=== PATIENT | female | born 1940 | race Caucasian/White ===

== ENCOUNTER 2020-06-24 12:16 | Outpatient (CLI) | payer MEDICARE, SELFPAY ==
--- NOTE | 2020-06-25 11:00 | WPDPFTINT ---
PFT Interpretation PFT Interpretation: This PFT met all criteria for ATS standards and reproducibility FEV/FVC post bronchodilator 67% FEV1 76% or 1.29 liters FVC 77% or 1.92 liters TLC 100% RV 133% RV/TLC 57% DLCO 63% when adjusted for alveolar volume but not adjusted for hemoglobin Flow volume loops showed significant expiratory coving Impression: Moderate airflow obstruction with air trapping and mildly reduced diffusion capacity. This pattern is suggestive of COPD. Clinical correlation is advised.
== END 2020-06-24 12:17 | disposition home or self-care (01) ==
PROVIDERS: PCP Nurse Practitioner Adult Health; Visit Provider Nurse Practitioner
DX: J44.9 Chronic obstructive pulmonary disease, unspecified (principal); R94.2 Abnormal results of pulmonary function studies
CPT/HCPCS: 94060; 94726; 94729

== ENCOUNTER 2025-02-09 08:11 | Outpatient (CLI) | payer MEDICARE, SELFPAY ==
--- OUTSIDE RECORDS SUMMARY | 2025-02-08 15:56 | XMS_ITS | Continuity of Care Document ---
Author Organization [facility] Address [address] [place] [address] Phone Care Team Providers Care Environmental Technology Professor Name Role Phone Kevin Mccarthy Unavailable Unavailable [...] Copied on Encounter Office/outpati ent Visit, Est [facility], [address], [place], [place], [address], [place] tel:[phone] SEC [facility] No Information 201 0 Shari Brown. [address] , [address], [place], [address], [place]. tel:[phone] Office/outpati ent Visit, [facility], [address] [place] [address] [address], [place], [place], [address], [place] tel:[phone] SEC [facility] No Information 0 8-201 0 Shari Brown. [facility] , [address], [place], [place], [facility], [place]. tel:[phone] [facility], [address] [place] [address] [address], [place], [place], [address], [place] tel:[phone] SEC [facility] No Information 4-201 0 Usama Traore. [address] [employer], [place], [facility], [place]. tel:[phone] [facility], [address] [place] [address] [address], [place], [place], [address], [place] tel:[phone] SEC [facility] [place] No Information Sep-1 7-200 9 Forrester León. [address] [employer], [place], [facility], [place]. tel:[phone] Office Consultation [facility], [address] [place] [address] [address], [place], [place], [address], [place] tel:[phone] [facility] [place] No Information Sep-0 3-200 9 Usama Traore. [address] [employer], [place], [facility], [place]. tel:[phone] Referring Provider: Kevin Wilson, [address] [place] [address] [address], [place], [address]. tel:[phone] [facility], [address] [place] [address] [address], [place], [place], [address], [place] tel:[phone] SEC [facility] No Information Sep-0 2-200 9 Shari Brown. [facility] , [address], [place], [facility], [place]. tel:[phone] [facility], [address] [place] [address] [address], [place], [place], [address], [place] tel:[phone] [facility] No Information Mar-0 5-200 8 Doisy Edward. [address] [facility] , [address], [place], [address], . tel:[phone] Office/outpati ent Visit, [facility], [address] [place] [address] [address], [place], [place], [address], [place] tel:[phone] SEC Yohsi Dupree No Information Mar-0 9-200 7 B[place]. [address] [place] [address], [address], [place], [place], [address], [place]. tel:[phone] Referring Provider: Abimael Carmichael OD A, [address] [place], [place] [address]ate [address], [place], [facility]. tel:[phone] Office/outpati ent Visit, [facility], [address] [place] [address] [address], [place], [place], [address], [place] tel:[phone] SEC [facility] No Information Mar-0 6-200 7 Carmichael OD Abimael. [facility] , [address], [place], [address], [place]. tel:[phone] Office/outpati ent Visit, [facility], [address] [place] [address] [address], [place], [place], [address], [place] tel:[phone] SEC [facility] No Information Feb-2 8-200 7 Carmichael OD Abimael. [address] , [address], [place], [address], [place]. tel:[phone] Office/outpati ent Visit, [facility], [address] [place] [address] [address], [place], [place], [address], [place] tel:[phone] [facility] No Information Feb-0 3-200 7 Carmichael OD Abimael. [address] , [address], [place], [address], [place]. tel:[phone] Family History Family Member Type Diagnosis Age At Onset No Information Payers Payer name Insurance type Covered republican ID Authoriza tion(s) Medicare [facility] [id number] [place] [id number] Social History Type Description Quantity Date Captured [...]
--- OUTSIDE RECORDS SUMMARY | 2025-02-08 15:56 | XMS_ITS | Encounter Summary ---
Author Organization [facility] Health Address [address] [place] [address] Care Team Providers Care Operations Manager Name Role Phone Marry Cardoso MD Unavailable [phone] Nadege Cervantes Primary Care Provider + Marry Cardoso MD Unavailable [phone] Jennifer Benitez MD Primary Care Provider [phone] Nadege Cervantes Primary Care Provider + Encounter Details Date Type Department Care Team (Late st Contact Info) Description 07/27/2017 [facility] Outpatient Visit [facility] [address] [place] [address] [place] [address] [address] Social History Tobacco Use Types Packs/Day Years Used Date Smoking Tobacco: Former Cigarettes 1 08/30/2002 - 12/28/2006 Alcohol Use Standard Drinks/Week Comments Yes 0 (1 standard drink = 0.6 oz pur e alcohol) occas glass of wine Comments No Sex and Gender Information Value Date Recorded Sex Assigned at Female 01/21/2021 10:18 AM CDT Legal Sex Female 4:47 AM BI SPECIALIST Gender Identity Female 01/21/2021 10:18 AM CDT Sexual Orientation Straight 01/21/2021 10 :18 AM CDT Occupation Industry Job Start Date Job End Date retired Not on file Not on file Not on file documented as of this encounter Plan of Treatment Upcoming Encounters Date Type Department Care Team (Late st Contact Info) Description 02/12/2025 8:00 AM CDT Hospital Encounter [facility] [address] [facility], [address] [place] [address] [place] [address] [facility] [address] [place] [address] 03/26/2025 8:00 AM CDT Appointment [facility] - [facility] [address] [facility], [address] [place] [address] [place] [id number] [place] [address] [address] [place] [address] 05/08/2025 8:15 AM CDT Office Visit [facility] [id number] [place] [address] [address] [place] [address] [place] [id number] [place] [address] [address] [place] [address] documented as of this encounter Visit Diagnoses Not on filedocumented in this encounter Care Teams Operations Manager Relationship Specialty Start Date End Date Nadege Cervantes APRN-SPINNING DOFFER [address] [phone] PCP - General Nurse Practitioner 12/05/15 11/23/22 Marry Cardoso MD [address] [place] [address] [address] [place] [address] PCP - Attributed-MSSP 03/15/18 12/03/19 Jennifer Benitez MD [address] [place], [place] [address] [place] [address] PCP - General Family Medicine 11/24/22 05/29/24 Nadege Cervantes APRN-SPINNING DOFFER [address] [address] PCP - General Nurse Practitioner 05/30/24 [place] [address] [address] Clasp Machine Operator Rheumatology 12/05/15 documented as of this encounter
--- OUTSIDE RECORDS SUMMARY | 2025-02-08 15:56 | XMS_ITS | Clinical Summary ---
Author Organization [facility] Address [address] [place] [address] Care Team Providers Care Hand Woven Carpet And Rug Mender Name Role Phone Nadege Cervantes NP Primary Care Provider [phone] Allergies Active Allergy Reactions Criticality Noted Date Comments Ezetimibe Unknown 07/21/2022 Iodinated Contrast Media Methotrexate Shortness of breath High 12/28/2014 Solifenacin Unknown 12/05/2015 Does not remember the reaction Sulfa (Sulfonamide Antibiotics) Medications buPROPion SR (ZYBAN) 150 mg 12 hr tablet Take 1 tablet (150 mg total) by mouth 2 (two) times a day Active losartan (COZAAR) 50 mg tablet Take 1 tablet (50 mg total) by mouth daily Active montelukast (SINGULAIR) 10 mg tablet Take 1 tablet (10 mg total) by mouth nightly Active sertraline (ZOLOFT) 50 mg tablet Take 1 tablet (50 mg total) by mouth nightly Active simvastatin (ZOCOR) 20 mg tablet Take 1 tablet (20 mg total) by mouth nightly Active aspirin 81 mg enteric coated tablet Take 1 tablet (81 mg total) by mouth nightly Active multivitamin with minerals tablet Take 1 tablet by mouth daily Active calcium carbonate-vitam in D3 1,250 mg (500 mg elemental)-125 unit per tablet Take 1 tablet by mouth nightly Active cycloSPORINE (RESTASIS) 0.05 % ophthalmic emulsion Administer 1 drop into both eyes 2 (two) times a day Active fluticasone propionate (FLONASE) 50 mcg/actuation nasal spray Administer 2 sprays into each nostril nightly Active abatacept (ORENCIA) 250 mg injection Infuse 30 mL (750 mg total) into a venous catheter as directed Every 6 weeks Active cholecalciferol (VITAMIN D-3) 25 mcg (1,000 unit) tablet Take 1 tablet (1,000 Units total) by mouth 3 (three) times a week Wednesday, Wednesday, Wednesday Active glucosamine HCl 1,500 mg tablet Take 2 tablets by mouth daily Active chondroitin sulfate A sodium 400 mg capsule Take 1 capsule by mouth nightly Active buPROPion XL (WELLBUTRIN XL) 150 mg 24 hr tablet Take 1 tablet (150 mg total) by mouth daily Active furosemide (LASIX) 20 mg tablet Take 1 tablet (20 mg total) by mouth daily Active tiotropium-olod ateroL (Stiolto Respimat) 2.5-2.5 mcg/actuation inhaler Inhale 2 puffs daily 3 each 3 5 12/26/19 26 Active Active Problems Problem Noted Date Diagnosed Date Seasonal allergic rhinitis 12/25/2024 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 Bronchiectasis without acute exacerbation 2024 Colitis 07/21/2022 Dependence on supplemental oxygen 02/25/2021 Rheumatoid arthritis 12/14/2015 Hyperlipidemia 12/14/2015 Chronic obstructive pulmonary disease 12/14/2015 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 Obesity with body mass index 30 or greater 12/11 Hepatitis B antibody positive 12/11/2015 Encounters Date Type Department Care Team Description 01/08/2025 Telephone [facility] Pulmonary at [address] [place] [address] Lillie Herrera LPN Med Refill 12/25/2024 10:30 AM CDT Office Visit [facility] Pulmonary at [address] [place] [address] Darian Wilder DO Bronchiectasis without acute exacerbation (HCC) (Primary Dx); Chronic obstructive pulmonary disease, unspecified COPD type (HCC) from Last 3 Months Immunizations Immunization Administration Dates Next Due Influenza, Quadrivalent, Hig h Dose, Preservative Free, Intrr 05/23/2022,06/14/2021,05/30/2018,06/01 Influenza, Quadrivalent, Spl it, Intramuscular 06/08/2019,05/30/2018,06/01/2017 Influenza, Trivalent, IM (MDV) 7,06/01/2016,05/28/2015,07/27 Influenza, Trivalent, Split, Preservative Free, Intradermal 06/14/2015 PPD TEST 08/30/2007,01/28/2007 Pfizer SARS-CoV-2 Monovalent Vaccination (12+ Yrs) PURPLE 05/23/2022 Pneumococcal Conjugate PCV 13 2014 Pneumococcal Polysaccharide PPV23 10/04/2006 Surgical History Surgery Date Site/Laterality Comments [place] CHOLECYSTECTOMY Cholecystectomy - (Added by TW Conv) FOOT SURGERY Foot Surgery - (Added by TW Conv) WRIST SURGERY Wrist Surgery - (Added by TW Conv) Medical History Medical History Date Comments Cellulitis of left lower extremity Cellulitis of left lower extremity - (Added by TW Conv) Cellulitis of right lower extremity Cellulitis of right lower extremity - (Added by TW Conv) Enterocolitis due to Clostri dium difficile Clostridium difficile coliti s - (Added by TW Conv) Personal history of other di seases of the digestive system History of hiatal hernia - ( Added by TW Conv) Family History Medical History Relation Name Comments Bleeding Disorder Brother Family his tory of coagulation disorder - (Added by TW Conv) Cancer Brother Family history of malignant neoplasm - (Added by TW Conv) Parkinsonism Brother FH: Parkinson's disease - (Added by TW Conv) Cirrhosis Father Family history of hepatic cirrhosis - (Added by TW Conv) Heart defect Father Family history of cardiomegaly - (Added by TW Conv) Bleeding Disorder Mother Family his tory of coagulation disorder - (Added by TW Conv) Cancer Sister Family history of malignant neoplasm - (Added by TW Conv) Relation Name Status Comments Brother Father Mother Sister Social History Tobacco Use Types Packs/Day Years Used Date Smoking Tobacco: Former Cigarettes 0.1 19.4 2 006 - 1960 Tobacco Cessation:Counseling Given: Not Answered Comments Unknown Sex and Gender Information Value Date Recorded Sex Assigned at Not on file Legal Sex Female 12:29 AM TRIAL JUDGE Gender Identity Female 07/30/2022 2:03 PM TRIAL JUDGE Sexual Orientation Bisexual 07/30/2022 2: 03 PM TRIAL JUDGE Obstetrics History Last Filed Vital Signs Vital Sign Reading Time Taken Comments Blood Pressure 102/50 12/25/2024 10:13 AM CDT Pulse 105 12/25/2024 10:13 AM CDT Temperature 36.9 C (98.4 F) 12/25/2024 10:13 AM CDT Respiratory Rate 18 09/25/2024 11:07 AM TRIAL JUDGE Oxygen Saturation 97% 12/25/2024 10:13 AM CDT Inhaled Oxygen Concentration - - Weight 79.2 kg (174 lb 8 oz) 12/25/2024 10:13 AM CDT Height 160 cm (5' 3) 12/25/2024 10:13 AM CDT Body Mass Index 30.91 12/25/2024 10:13 AM CDT Plan of Treatment Health Maintenance Due Date Last Done Comments Depression Screening 1940 Osteoporosis Screening-Bone Density Scan 1940 DTaP/Tdap/Td Vaccine (1 - Tdap) 1951 Hepatitis B Screening 1958 Zoster Vaccine (1 of 2) 1959 Well Visit 65+ 2005 Fall Risk Assessment 07/28/2023 07/28/2022 Covid-19 Vaccine (5 - 2023-2 5 season) 2024 05/23/2022, 05/23/2022, 06/30/2021, Additional history exists Influenza Vaccine (Season Ended) 2025 05/23/2022, 06/14/2021, 06/08/2019, Additional history exists Pneumococcal vaccine 65+ Completed 2014, 12/2006 Insurance MEDICARE [facility] MEDICARE SUPPLEMENT MEDICARE Advance Directives For more information, please contact: [phone] * Full Code (Latest Code Status on File) Date Activated Date Inactivated Comments 07/24/2022 6:38 PM 07/28/2022 6:18 PM Care Teams Hand Woven Carpet And Rug Mender Relationship Specialty Start Date End Date Nadege Cervantes NP PCP - General Nurse Practitioner 07/24/22
--- OUTSIDE RECORDS SUMMARY | 2025-02-08 15:56 | XMS_ITS | Referral Summary ---
Author Organization [facility] Address [address] [place] [address] Care Team Providers Care Communications Scientist Name Role Phone Billy Nadege CERON Primary Care Provider [phone] Encounters Date Type Department Care Team Description 01/08/2025 Telephone [facility] Pulmonary at [address] [place] [phone] Lillie Herrera LPN Med Refill 12/25/2024 10:30 AM CDT Office Visit [facility] Pulmonary at [address] [place] [phone] Darian Wilder DO Bronchiectasis without acute exacerbation (HCC) (Primary Dx); Chronic obstructive pulmonary disease, unspecified COPD type (HCC) from Last 3 Months Allergies Active Allergy Reactions Criticality Noted Date [...] greater 12/11 Hepatitis B antibody positive 12/11/2015 Immunizations Immunization Administration Dates Next Due Influenza, Quadrivalent, Hig h Dose, Preservative Free, Intrr 05/23/2022,06/14/2021,05/30/2018,06/01 Influenza, Quadrivalent, Spl it, Intramuscular 06/08/2019,05/30/2018,06/01/2017 Influenza, Trivalent, IM (MDV) 7,06/01/2016,05/28/2015,07/27 Influenza, Trivalent, Split, Preservative Free, Intradermal 06/14/2015 PPD TEST 08/30/2007,01/28/2007 Pfizer SARS-CoV-2 Monovalent Vaccination (12+ Yrs) PURPLE 05/23/2022 Pneumococcal Conjugate PCV 13 2014 Pneumococcal Polysaccharide PPV23 10/04/2006 Social History Tobacco Use Types Packs/Day Years Used Date Smoking Tobacco: Former Cigarettes 0.1 19.4 2 006 - 1960 Tobacco Cessation:Counseling Given: Not Answered Comments Unknown Sex and Gender Information Value Date Recorded Sex Assigned at Not on file Legal Sex Female 12:29 AM CONTENT ENGINEER Gender Identity Female 07/30/2022 2:03 PM CONTENT ENGINEER Sexual Orientation Bisexual 07/30/2022 2: 03 PM CONTENT ENGINEER Last Filed Vital Signs Vital Sign Reading Time Taken Comments Blood Pressure 102/50 12/25/2024 10:13 AM CDT Pulse 105 12/25/2024 10:13 AM CDT Temperature 36.9 C (98.4 F) 12/25/2024 10:13 AM CDT Respiratory Rate 18 09/25/2024 11:07 AM CONTENT ENGINEER Oxygen Saturation 97% 12/25/2024 10:13 AM CDT Inhaled Oxygen Concentration - - Weight 79.2 kg (174 lb 8 oz) 12/25/2024 10:13 AM CDT Height 160 cm (5' 3) 12/25/2024 10:13 AM CDT Body Mass Index 30.91 12/25/2024 10:13 AM CDT Plan of Treatment Not on file Insurance MEDICARE [facility] MEDICARE SUPPLEMENT MEDICARE Advance Directives For more information, please contact: [phone] * Full Code (Latest Code Status on File) Date Activated Date Inactivated Comments 07/24/2022 6:38 PM 07/28/2022 6:18 PM Care Teams Communications Scientist Relationship Specialty Start Date End Date Nadege Cervantes NP PCP - General Nurse Practitioner 07/24/22
--- OUTSIDE RECORDS SUMMARY | 2025-02-08 15:56 | XMS_ITS | Clinical Summary ---
Author Organization [facility] [employer] Address [address] [facility] [place] [address] Care Team Providers Care Therapeutic Sales Specialist Name Role Phone Marry Cardoso MD Unavailable [phone] Nadege Cervantes APRN-SENIOR APPLICATION SECURITY CONSULTANT Primary Care Provider + Source Comments [facility],non-owned Affiliates and Associated Physician Practices is amultiple site organization consisting of ambulatory clinics and hospital sitesin [place], [place], [place] and [place]. This disclosure is being madepursuant to the Care Everywhere program and may not contain all information available regarding this patient. Last updated 18.[facility] Allergies Active Allergy Reactions Criticality Noted Date Comments constrast [Other] Rash 11/07/2008 IVP DYE Contrast-Iodinated Agents For Ct/Other Unknown Low 03/29/2018 Methotrexate Shortness of Breath High 12/28/2014 Other-See Past Updates 11/07/2008 Solifenacin Unknown Low 12/05/2015 Does not remember the reaction Sulfa Antibiotics Unknown 01/01/2025 Sulfa Drugs Nausea and/or Vomiting Low 11/07/2008 Only had this as a child Sulfacetamide Unknown Low 03/29/2018 Ezetimibe Other 12/05/2015 Elevated BP Medications * Be aware that medications may not be up to date on this document. Alwaysverify current medications with the patient. GLUCOSAMINE COMPLEX PO Take by mouth 2 times daily. Active MULTIVITAMIN PO Take by mouth daily. Active Calcium Carbonate-Vit D-Min 0480-8453 MG-UNIT CHEW Take by mouth once daily Active vitamin D 1000 UNIT tablet Take 1 (one) tablet by mouth Three times a week Active simvastatin (ZOCOR) 20 MG tablet Take 1 (one) tablet by mouth at bedtime Active abatacept (ORENCIA) IV injection Orencia 750mg IV every 7 weeks 3 Each 3 Active Additional Information Patient taking differently: Orencia 750mg IV every 6 weeks, Reported on 01/01/2025 RESTASIS 0.05 % ophthalmic suspension Instill 1 (one) drop into both eyes 2 times daily 4 6 Active sertraline (ZOLOFT) 50 MG tablet Take 1 (one) tablet by mouth once daily Active fluticasone propionate (FLONASE) 50 MCG/ACT nasal spray [place] 2 (two) sprays into each nostril once daily Active furosemide (LASIX) 20 MG tablet Take 1 (one) tablet by mouth once daily Active tiotropium (SPIRIVA) 2.5 MCG/ACT inhaler Inhale 2 (two) puffs by mouth once daily Active albuterol (PROVENTIL;VENT JOHN) (2.5 MG/3ML) 0.083% nebulizer solution Inhale by mouth 4 times daily as needed for Shortness of Breath or Wheezing Active montelukast (SINGULAIR) 10 MG tablet Take 1 (one) tablet by mouth at bedtime Active buPROPion SR 12hr (WELLBUTRIN-SR) 150 MG tablet Take 1 (one) tablet by mouth once daily Active aspirin EC (Ecotrin) 81 MG tablet Take 1 (one) tablet by mouth at bedtime Active meclizine (Antivert) 25 MG tablet Take 1 (one) tablet by mouth every 8 hours as needed 5 Active losartan (Cozaar) 50 MG tablet Take 1 (one) tablet by mouth once daily 4 Active nitrofurantoin monohyd macro crystals (Macrobid) 100 MG capsule TAKE 1 CAPSULE BY MOUTH EVERY 12 HOURS FOR 5 DAYS WITH LARGE SNACK OR SMALL MEALS Active Tiotropium [place]-Olodate rol 2.5-2.5 MCG/ACT Inhale 2 puffs by mouth once daily 5 12/26/19 26 Active Active Problems Problem Noted Date Diagnosed Date 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 RF(+); has had IV abiotic Rx in [facility] [place] (1991); Orencia 2008. Destructive carpal changes. Orencia tapered 10/2011; unable to tolerate lower frequency than every 6 weeks. Osteoarthritis, knee 06/24/2010 Overview (04/18/2013): Jeane Gil 05/2010. Steroid shots 2012. Osteopenia 03/15/2010 Overview (03/15/2010): HEAVENLY 10/10/2009 Hip 0.3; Spine -1.2 Screening for condition 07/08/2009 Overview (05/30/2015): HEAVENLY 10/21/07 Neck -0.1 HEAVENLY 10/10/2009 Neck -0.4; spine -1.2 Vitamin D deficiency 02/15/2009 Fx wrist 11/07/2008 Overview (06/24/2010): TWO; HEAVENLY 05/18/06 spine -0.8; neck 0.1 High blood cholesterol 11/07/2008 DVT (deep venous thrombosis) 11/07/2008 Encounters Date Type Department Care Team Description 01/01/2025 8:30 AM CDT Office Visit [facility] - Rheumatology [address] [place] [address] [place] [id number] Marry Cardoso MD Rheumatoid arthritis of multiple sites without organ or system involvement with positive rheumatoid factor (HCC) (Primary Dx); Polyarthralgia; High risk medications (not anticoagulants) long-term use; Lassitude; Vitamin D deficiency; Osteopenia of multiple sites; Immunosuppressed status (HCC); 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); Flare of rheumatoid arthritis (HCC) 01/01/2025 7:45 AM CDT - 01/01/2025 11:59 PM CDT Hospital Encounter [facility] - Rheumatology [address] [place] [address], [address] [place] [address] Marry Cardoso MD Discharge Disposition: Home or Self Care 12/27/2024 Travel 11/13/2024 7:51 AM CDT - 11/13/2024 11:59 PM CDT Hospital Encounter [facility] - Rheumatology [address] [place] [address], [address] [place], [place] [id number] Marry Cardoso MD Discharge Disposition: Home or Self Care from Last 3 Months Immunizations Immunization Administration Dates Next Due INFLUENZA VACCINE, TRIV. (AF LURIA, FLUZONE TRIVALENT; 6MO+) (IIV3) 06/14/2017,06/01/2016,05/28/2015,2013 Covid Pfizer primary monoval ent 12+ yr 0.3mL Purple cap 05/23/2022,10/14/2020,09/23/2020 FLU VACCINE QUAD IIV4 SPLIT 0.25 ML IM 05/23/2022,06/08/2019,05/30/2019,2016 INFLUENZA VACCINE 05/23/2022,06/14/2021,05/30/20 18 INFLUENZA VACCINE, HIGH-DOSE , QUADR. (FLUZONE HIGH-DOSE QUADRIVALENT; 65Y+), 0.7 ML (HD-IIV4) 05/30/2018,06/01/2016 INFLUENZA VACCINE, QUADR. (A FLURIA, FLUZONE QUADRIVALENT; 6MO+) (IIV4) 05/30/2018 Influenza Intradermal 06/14/2015 PNEUMOCOCCAL PPSV23 10/04/2006 PPD 08/30/2007,01/28/2007 Pneumococcal Pcv13 Conj 2014 Family History Medical History Relation Name Comments CAD (Coronary Artery Disease) Father Relation Name Status Comments Father Social History Tobacco Use Types Packs/Day Years Used Date Smoking Tobacco: Former Cigarettes 1 08/30/2002 - 12/28/2006 Smokeless Tobacco: Former Tobacco Cessation:Counseling Given: Not Answered Alcohol Use Standard Drinks/Week Comments Yes 0 (1 standard drink = 0.6 oz pur e alcohol) Rare PHQ-2 Answer Date Recorded Patient Health Questionnaire-2 Score 0 05/30/2024 Comments No Sex and Gender Information Value Date Recorded Sex Assigned at Female 01/21/2021 10:18 AM CDT Legal Sex Female 4:47 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 Gender Identity Female 01/21/2021 10:18 AM CDT Sexual Orientation Straight 01/21/2021 10 :18 AM CDT Occupation Industry Job Start Date Job End Date retired Not on file Not on file Not on file Last Filed Vital Signs Vital Sign Reading Time Taken Comments Blood Pressure 131/72 01/01/2025 8:20 AM CDT Pulse 105 01/01/2025 8:20 AM CDT Temperature 36.8 C (98.2 F) 01/01/2025 7:57 AM CDT Respiratory Rate 18 11/13/2024 8:11 AM CDT Oxygen Saturation 95% 01/01/2025 7:57 AM CDT Inhaled Oxygen Concentration - - Weight 79.4 kg (175 lb) 01/01/2025 8:20 AM CDT Height 160 cm (5' 3) 01/01/2025 8:20 AM CDT Body Mass Index 31 01/01/2025 8:20 AM CDT Plan of Treatment Upcoming Encounters Date Type Department Care Team (Late st Contact Info) Description 02/12/2025 8:00 AM CDT Hospital Encounter [facility] - Rheumatology [address] [place] [address], [address] [place] [address] [place] [id number] [place], [place] [address] [address] [place] [phone] 03/26/2025 8:00 AM CDT Appointment [facility] [id number], [address] [place] [address] Marry Cardoso MD [phone] [place], [place] [address] [address] [place] [address] 05/08/2025 8:15 AM CDT Office Visit [facility] - Rheumatology [facility] [address] [place] [address] Marry Cardoso MD [address] [place] [address] [employer] [address] [place] [address] Health Maintenance Due Date Last Done Comments MEDICARE AWV 12 MONTHS 1940 DTAP/TDAP/TD VACCINES (1 - Tdap) 1959 ZOSTER VACCINE (1 of 2) 1959 Respiratory Syncytial Virus (RSV) Vaccine Pt: or over 60 yrs (1 - 1-dose 75+ series) 2015 COVID-19 VACCINE ( season) 2024 05/23/2022, 10/14/2020, 09/23/2020 DEPRESSION SCREENING 08/30/2024 05/30/2024 INFLUENZA VACCINE (Season Ended) 2025 05/23/2022, 05/23/2022, 06/14/2021, Additional history exists PNEUMOCOCCAL VACCINE 50+ Completed 2014, 12/2006 BONE DENSITY TESTING Completed 02/08/2015, 10/10/19 10 HEPATITIS B VACCINE Aged Out No longe r eligible based on patient's age to complete this topic HIB VACCINE Aged Out No longer eligi ble based on patient's age to complete this topic HPV VACCINE Aged Out No longer eligi ble based on patient's age to complete this topic MENINGOCOCCAL (Group B) VACCINE SHARED DECISION-MAKING Aged Out No longer eligible based on patient's age to complete this topic MENINGOCOCCAL GROUPS A/C/Y/W VACCINE Aged Out No longer eligible based on patient's age to complete this topic Procedures Procedure Name Priority Date/Time Associated Diagnosis Comments DEXA BONE DENSITY 2 SITES Routine 02/08/2015 from Last 3 Months or Most Recently Relevant to Health Maintenance Results * DEXA BONE DENSITY 2 SITES (02/08/2015) Anatomical Region Laterality Modality Other Esther Iyer MD DEXA ORDERABLES Final Result from Last 3 Months or Most Recently Relevant to Health Maintenance Insurance MEDICARE [employer] Care Teams Therapeutic Sales Specialist Relationship Specialty Start Date End Date Nadege Cervantes APRN-BRADLEY [address] [phone] PCP - General Nurse Practitioner 05/30/24 [place] [id number] [phone] Full Decator Operator Rheumatology 12/05/15
--- OUTSIDE RECORDS SUMMARY | 2025-02-09 08:14 | XMS_ITS | Clinical Summary ---
Author Organization [facility] Address [address] [place] [address] Care Team Providers Care Engineering Coordinator Name Role Phone Nadeeg Cervantes NP Primary Care Provider [phone] Allergies Active Allergy Reactions Criticality Noted Date [...] Type Department Care Team Description 01/08/2025 Telephone [facility] Pulmonary at [address] [place] [phone] Lillie Herrera LPN Med Refill 12/25/2024 10:30 AM CDT Office Visit [facility] Pulmonary at [address] [place] [phone] Darian Wilder DO Bronchiectasis without acute [...] 10/04/2006 Surgical History Surgery Date Site/Laterality Comments NM CHOLECYSTECTOMY Cholecystectomy - (Added by TW Conv) [...] on file Legal Sex Female 12:29 AM FEED 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 Gender Identity Female 07/30/2022 2:03 PM FEED BLENDER Sexual Orientation Bisexual 07/30/2022 2: 03 PM FEED BLENDER Obstetrics History Last Filed Vital Signs Vital Sign Reading Time Taken Comments Blood Pressure 102/50 12/25/2024 10:13 AM CDT Pulse 105 12/25/2024 10:13 AM CDT Temperature 36.9 C (98.4 F) 12/25/2024 10:13 AM CDT Respiratory Rate 18 09/25/2024 11:07 AM FEED BLENDER Oxygen Saturation 97% 12/25/2024 10:13 AM CDT [...] vaccine 65+ Completed 2014, 12/2006 Insurance MEDICARE [facility] MEDICARE SUPPLEMENT MEDICARE Advance Directives For more information, please contact: [phone] * Full Code (Latest Code Status on File) Date Activated Date Inactivated Comments 07/24/2022 6:38 PM 07/28/2022 6:18 PM Care Teams Engineering Coordinator Relationship Specialty Start Date End Date Nadege Cervantes NP PCP - General Nurse Practitioner 07/24/22
--- OUTSIDE RECORDS SUMMARY | 2025-02-09 08:14 | XMS_ITS | Referral Summary ---
Author Organization [facility] Address [address] [place] [address] Care Team Providers Care Booker Name Role Phone Billy Nadege CERON Primary Care Provider [phone] Encounters Date Type Department Care Team Description 01/08/[address] [facility] Pulmonary at [address] [place] [phone] Lillie Herrera LPN Med Refill 12/25/2024 10:30 AM CDT Office Visit 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 Gender Identity Female 07/30/2022 2:03 PM WHEEL TRUING MACHINE TENDER Sexual Orientation Bisexual 07/30/2022 2: 03 PM WHEEL TRUING MACHINE TENDER Last Filed Vital Signs Vital Sign Reading Time Taken Comments Blood Pressure 102/50 12/25/2024 10:13 AM CDT Pulse 105 12/25/2024 10:13 AM CDT Temperature 36.9 C (98.4 F) 12/25/2024 10:13 AM CDT Respiratory Rate 18 09/25/2024 11:07 AM WHEEL TRUING MACHINE TENDER Oxygen Saturation 97% 12/25/2024 10:13 AM CDT Inhaled Oxygen Concentration - - Weight 79.2 kg (174 lb 8 oz) 12/25/2024 10:13 AM CDT Height 160 cm (5' 3) 12/25/2024 10:13 AM CDT Body Mass Index 30.91 12/25/2024 10:13 AM CDT Plan of Treatment Not on file Insurance MEDICARE [facility] MEDICARE SUPPLEMENT MEDICARE Advance Directives For more information, please contact: [phone] * Full Code (Latest Code Status on File) Date Activated Date Inactivated Comments 07/24/2022 6:38 PM 07/28/2022 6:18 PM Care Teams Booker Relationship Specialty Start Date End Date Nadege Cervantes NP PCP - General Nurse Practitioner 07/24/22
--- OUTSIDE RECORDS SUMMARY | 2025-02-09 08:15 | XMS_ITS | Data Portability ---
Author Organization [place] [facility] [employer] [facility], Main Office Address [address] [place] [address] Care Team Providers Care Loan Administrator Name Role Phone JENNIFER SRINIVASAN Primary Care Provider [phone] Assessment Encounter Date Assessment Date Assessment LastModified by Organization Details LastModified Time 04/04/2024 04/04/2024 This note is dictated and transcribed by [employer]. Refinery Operator Coking variances may occur. Despite proofreading, typographical errors may occur. Occasional wrong-word or 'kpwye-u-cnts' substitutions may have occurred due to the inherent limitations of voice recording. Read the chart carefully and recognize, using context, where substitutions have occurred. Not available 04/04/2024 10:38:54 06/06/2024 06/06/2024 This note is dictated and transcribed by [employer]. Refinery Operator Coking variances may occur. Despite proofreading, typographical errors may occur. Occasional wrong-word or 'kngyw-g-dsnj' substitutions may have occurred due to the inherent limitations of voice recording. Read the chart carefully and recognize, using context, where substitutions have occurred. Not available 06/06/2024 11:21:34 08/08/2024 08/08/2024 This note is dictated and transcribed by [employer]. Refinery Operator Coking variances may occur. Despite proofreading, typographical errors may occur. Occasional wrong-word or 'wqtik-u-dtsb' substitutions may have occurred due to the inherent limitations of voice recording. Read the chart carefully and recognize, using context, where substitutions have occurred. Not available 08/15/2024 11:19:05 10/24/2024 10/24/2024 This note is dictated and transcribed by [employer]. Refinery Operator Coking variances may occur. Despite proofreading, typographical errors may occur. Occasional wrong-word or 'lazfz-e-xzsw' substitutions may have occurred due to the inherent limitations of voice recording. Read the chart carefully and recognize, using context, where substitutions have occurred. Not available 10/24/2024 13:04:41 01/02/2025 01/02/2025 This note is dictated and transcribed by [employer]. Refinery Operator Coking variances may occur. Despite proofreading, typographical errors may occur. Occasional wrong-word or 'sqeps-o-ysyy' substitutions may have occurred due to the inherent limitations of voice recording. Read the chart carefully and recognize, using context, where substitutions have occurred. Not available 01/02/2025 10:07:06 Plan of Treatment Reminders Order Date Submit Date Provider Last Modified By Organization Details Last Modified Time Details Appointments Establish ed Patient 15 2024 09:30A M Ronal Rodriguez DPM Not available Not available Not available Lab None recorded. Referral None recorded. Procedures None recorded. Surgeries None recorded. Imaging None recorded. Medication Orders None recorded. Patient TargetsNo targets recorded. Patient InstructionsNo instructions recorded. Reason for Referral None Reported. Results Created Date Observation Date Name Description Value Unit Range Abnormal Flag Note LastModifiedBy Organization Detail LastModifiedTime 09/14/1909/14/2024 CT, chest , w/o contr ast No observ ation record ed. [email or web address] [facility] [address] [place], [address], 09/18/2024 09:58:06 09/18/1909/14/2024 compl ete PFT w/ post [facility] hodil ator christopher metry * No observ ation record ed. BARCODE Not Available 2024 13:55:33 Result Notes None recorded. 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 Not Available [facility] 3 10:39:58 Hammer toe 815239595 Completed Not Available [facility] 3 02:45:26 Hammer toe 888690168 Active 2021 Not Available [facility] 3 10:39:58 Celluliti s 473164578 Completed Not Available [facility] 3 02:45:26 Chronic obstructi ve pulmonary disease 51407878 Active 2017 Not Available [facility] 3 10:39:58 Acute sinusitis 21298661 Completed Not Available [facility] 3 02:45:26 Incomplet e uterovagi nal prolapse 826632581 Active Not Available [facility] 3 10:39:58 Generaliz ed osteoarth ritis 029985144 Active Not Available [facility] 3 10:39:58 Pneumonia 498837748 Completed Not Available [facility] 3 02:45:27 Contractu re of joint of toe 899480582 Active 2019 Not Available [facility] 3 10:39:58 Edema 214467700 Completed Not Available [facility] 3 02:45:27 Retention of urine 110935417 Completed Not Available [facility] 3 02:45:27 Mucus in stool 428039176 Completed Not Available [facility] 3 02:45:27 Knee pain Completed Not Available [facility] 3 02:45:28 Bronchiti s 94377441 Completed Not Available [facility] 3 02:45:28 Vitamin D deficienc y 43734715 Active Not Available [facility] 3 10:39:59 Lighthead edness 818180249 Completed Bryson Hannah MD [address] [facility], [facility] [address], [place], [address] , [facility] 5 16:52:14 Senile cataract 80210446 Active Not Available [facility] 3 10:39:59 Onychomyc osis of toenails 894108763 Active 2019 Not Available [facility] 3 10:39:59 Hypothyro idism 14796819 Active Not Available [facility] 3 10:39:59 Mixed urinary incontine nce 561913797 Active Not Available [facility] 3 10:39:59 Bunion 818189450 Active 2021 Not Available [facility] 3 10:39:59 Vomiting 920378808 Completed Not Available [facility] 3 02:45:29 Clostridi um difficile colitis 006748623 Completed Not Available [facility] 3 02:45:29 Rheumatoi d arthritis of foot 797553251 Active Not Available [facility] 3 10:39:59 Erythema of skin 692130075 Completed Not Available [facility] 3 02:45:30 Prerenal azotemia 125491810 Completed Not Available [facility] 3 02:45:30 Foot pain 88967089 Completed Not Available [facility] 3 02:45:30 Urinary complicat ion 96734990 Completed Not Available [facility] 3 02:45:30 Upper respirato ry infection 98812701 Completed Not Available [facility] 3 02:45:31 Hyperlipi demia 60599684 Active Not Available [facility] 3 10:39:59 Posterior rhinorrhe a 89918644 Completed Not Available [facility] 3 02:45:31 Obstructi ve sleep apnea syndrome 14018011 Active 2021 Not Available [facility] 3 10:39:59 Dependenc e on supplemen josé luis oxygen 27799882583 7 Active 2020 Not Available [facility] 3 10:39:59 Disorder of skin 55480086 Completed Not Available [facility] 3 02:45:32 Mixed anxiety and depressiv e disorder 601427723 Active 2022 Not Available [facility] 3 10:39:58 Allergic rhinitis 54811439 Active 2022 Not Available [facility] 3 10:39:59 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, [facility] [address], [place], [address] , [facility] [employer] [facility] 5 10:07:50 Pain in toe 094049687 Active 2024 Ronal Rodriguez DPM [address], [place], [address] , [facility] 5 13:04:42 Unable to cut own toenails 563354627 Active 2024 Ronal Rodriguez DPM [address], [place], [address] , [facility] 5 13:04:50 Pain in toe 843249340 Active 2024 Ronal Rodriguez DPM [address], [place], [address] , [facility] 5 10:07:20 Pain of toes of bilateral feet 65098530676 340367 Active 2024 Ronal Rodriguez DPM [address], [place], [address] , [facility] 5 10:07:40 Notes:PFT 02/08/23 FEV1 1.14 L (68%), BD 130 mL = 13%, TLC 4.29 L (95%), RV 2.45 L (125%), DLCO 54%, DLCO/VA 109% PFT 09/14/24 FEV1 1.09 L (68%), BD 50 mL = 6%, TLC 4.92 L (109%), RV 3.33 L (168%), DLCO 41%, DLCO/VA 95% Problem Notes None recorded. Procedures Surgical History Date Name Laterality Status Provider Name and Address Organization Details Recorded Time 5 Nail Debridement completed Ronal Rodriguez DPM [address], [address], [place], [address], [facility] 10/24/2024 13:02:28 4 Nail Debridement completed Ronal Rodriguez DPM [address], [place], [address], [employer] 08/15/2024 11:18:38 4 Nail Debridement completed Ronal Rodriguez DPM [address], [place], [address], [facility] 06/06/2024 11:21:19 4 Nail Debridement completed Ronal Rodriguez DPM [address], [place], [address], [place] [facility] 04/04/2024 10:38:40 4 Nail Debridement completed Ronal Rodriguez DPM [address], [place], [address], [place] [facility] 11/30/2023 10:10:31 4 Nail Debridement completed Ronal Rodriguez DPM [address], [address], [place], [address], [facility] 2023 10:02:59 3 Nail Debridement completed Ronal Rodriguez DPM [address], [place], [address], [facility] 06/08/2023 10:25:51 3 Nail Debridement completed Ronal Rodriguez DPM [address], [place], [address], [facility] 03/09/2023 09:36:15 3 Callus Debridement, One completed Ronal Rodriguez DPM [address], [place], [address], [facility] 03/09/2023 09:36:20 3 Nail Debridement completed Ronal Rodriguez DPM [address], [place], [address], [facility] 12/08/2022 12:20:37 3 Callus Debridement, One completed Ronal Rodriguez DPM [address], [place], [address], [facility] 12/08/2022 12:20:44 Imaging Results None recorded. Procedure Notes None recorded. Medical Equipment None Reported. Allergies Allergen ID Allergen Name Allergen Category Reaction Reaction Severity Criticality Documentation Date Start Date Code Code System Note Provider Name and Address Organization Details Recorded Time 3940 Zetia medicatio n Not available Not available Not available 10/28/2022 88145 9 RxNorm Not Available [facility] 3 02:51:40 3941 Vesicare medicatio n Not available Not available Not available 10/28/2022 48215 2 RxNorm Not Available [facility] 3 02:51:40 3942 Substance with sulfonami de structure and antibacte rial mechanism of action (substanc e) medicatio n Not available Not available Not available 10/28/2022 32578 8003 SNOMED Not Available [facility] 3 02:51:40 3943 methotrex ate medicatio n Not available Not available Not available 10/28/2022 6851 RxNorm Not Available [facility] 3 02:51:40 3944 Iodinated contrast media (substanc e) medicatio n Not available Not available Not available 10/28/2022 70493 2004 SNOMED Not Available [facility] 3 02:51:40 3945 Zoloft medicatio n other Not available Not available 10/28/2022 31582 RxNorm has to be off 1 month prior to colon oscop y ? react ion Not Available [facility] 3 02:51:40 Medications Name Sig Start Date Stop Date Status Note LastModified by Organization Details LastModified Time losartan 50 mg tablet TAKE 1 TABLET BY MOUTH EVERY DAY active Not Available Not Available No t Available methocarb amy 500 mg tablet TAKE 1 TABLET BY MOUTH EVERY 8 HOURS NEEDED 02/25 completed Not Available Not Available Not Available bupropion HCl SR 150 mg tablet,12 hr sustained -release 05/30 completed Not Available Not Available Not Available prednison e 10 mg tablet Take 5 tablets for 4 days, 4 tablets for 4 days, 3 tablets for 4 days, 2 tablets for 4 days, 1 tablet for 4 days, 1/2 tablet for 4 days then off active Not Available Not Available No t Available doxycycli ne hyclate 100 mg capsule TAKE 1 CAPSULE BY MOUTH TWICE DAILY FOR ACUTE OPIOID THERAPY DAYS active Not Available Not Available No t Available ipratropi um 0.5 mg-albute rol 3 mg (2.5 mg base)/3 mL nebulizat ion soln Inhale 3 mL every day by nebuliza tion route. 09/07 completed [facility] [id number] -01 Not Available Not Available Not Available clindamyc in HCl 300 mg capsule Take 1 capsule every 6 hours by oral route as directed for 14 days. active Not Available Not Available No t Available albuterol sulfate 2.5 mg/3 mL (0.083 %) solution for nebulizat ion VVN TID PRN 04/04 completed Not Available Not Available Not Available azithromy osiris 250 mg tablet TAKE 2 TABLETS (500 MG) BY ORAL ROUTE ONCE DAILY FOR 1 DAY THEN 1 TABLET (250 MG) BY ORAL ROUTE ONCE DAILY FOR 4 DAYS active Not Available Not Available No t Available valacyclo vir 1 gram tablet Take 1 tablet every 8 hours by oral route for 7 days. active Not Available Not Available No t Available prednison e 20 mg tablet TAKE 2 TABLETS BY MOUTH DAILY WITH FOOD FOR 5 DAYS 04/04 completed Not Available Not Available Not Available prednison e 5 mg tablet TAKE 4 TABLETS BY MOUTH EVERY DAY FOR 1 WEEK THEN 3 EVERY DAY FOR 1 WEEK THEN 2 FOR 1 WEEK THEN 1 FOR 1 WEEK THEN STOP 12/22 completed Not Available Not Available Not Available Rocephin 1 gram solution for injection 10/02 completed Not Available Not Available Not Available Diflucan 150 mg tablet Take 1 tablet every day by oral route for 1 day. active Not Available Not Available No t Available Advair Diskus 100 mcg-50 mcg/dose powder for inhalatio n USE 1 INHALATI ON TWO TIMES DAILY active Not Available Not Available No t Available Zyrtec 10 mg tablet Take 1 tablet every day by oral route. 11/29 completed OTC Not Available Not Available Not Available metronida zole 500 mg tablet TAKE 1 TABLET BY MOUTH THREE TIMES DAILY FOR 10 DAYS 08/05 completed Not Available Not Available Not Available aspirin 81 mg tablet,de layed release Take 1 tablet every day by oral route. 11/25 completed Not Available Not Available Not Available TobraDex 0.3 %-0.1 % eye ointment 07/17 completed Not Available Not Available Not Available vancomyci n 125 mg capsule TK 1 C PO Q 6 H FOR 14 DAYS active Not Available Not Available No t Available levothyro xine 25 mcg tablet TK 1 T PO QD active Not Available Not Available No t Available Kenalog 40 mg/mL suspensio n for injection Take 1 mL every day by injectio n route for 1 day. 09/07 completed Not Available Not Available Not Available Zofran 8 mg tablet Take 1 tablet every 8 hours by oral route for 2 days. 08/03 completed Not Available Not Available Not Available amoxicill in 875 mg tablet TAKE 1 TABLET BY MOUTH TWICE DAILY FOR 7 DAYS 06/23 completed Not Available Not Available Not Available prednisol one acetate 1 % eye drops,talib pension SHAKE LQ AND INT 1 GTT IN OU BID 04/12 completed Not Available Not Available Not Available DOK 100 mg capsule TK 1 C PO BID 04/12 completed Not Available Not Available Not Available meclizine 25 mg tablet TAKE 1 TABLET BY MOUTH EVERY 8 HOURS NEEDED active Not Available Not Available No t Available benzonata te 100 mg capsule Take 1 capsule 3 times a day by oral route as directed for 10 days. 09/25 completed Not Available Not Available Not Available cephalexi n 500 mg capsule TK 1 C PO BID FOR 7 DAYS active Not Available Not Available No t Available simvastat in 20 mg tablet TAKE 1 TABLET BY MOUTH DAILY active Not Available Not Available No t Available oseltamiv ir 75 mg capsule Take 1 capsule twice a day by oral route for 5 days. 04/12 completed Not Available Not Available Not Available losartan 25 mg tablet TAKE 1 TABLET BY MOUTH EVERY DAY 06/23 completed Not Available Not Available Not Available triamcino lone acetonide 0.025 % topical ointment active Not Available Not Available Not Available gentamici n 0.1 % topical cream APPLY A SMALL AMOUNT TO THE AFFECTED AREA OF TOE ULCER THREE TIMES DAILY 11/29 completed Not Available Not Available Not Available amoxicill in 250 mg capsule TK 1 C PO Q 8 H TAT active Not Available Not Available No t Available monteluka st 10 mg tablet TAKE 1 TABLET BY MOUTH DAILY active Not Available Not Available No t Available hydroxyzi ne HCl 25 mg tablet Take 1 tablet every day by oral route as needed for 30 days. active Not Available Not Available No t Available ceftriaxo ne 500 mg solution for injection 10/11 completed [facility]#:[id number] 1 Not Available Not Available Not Available mupirocin 2 % topical ointment active Not Available Not Available Not Available furosemid e 20 mg tablet TAKE 1 TABLET BY MOUTH ONCE DAILY active Not Available Not Available No t Available cefuroxim e axetil 500 mg tablet TAKE 1 TABLET BY MOUTH TWICE DAILY UNTIL ALL TAKEN 08/05 completed Not Available Not Available Not Available levofloxa osiris 500 mg tablet Take 1 tablet every 24 hours by oral route. active Not Available Not Available No t Available methylpre dnisolone 4 mg tablets in a dose pack FOLLOW PACKAGE DIRECTIO NS active Not Available Not Available No t Available albuterol sulfate HFA 90 mcg/actua tion aerosol inhaler Inhale 2 puffs every 4-6 hours by inhalati on route for 30 days. 2022 active Not Available Not Available Not Avai lable Cipro 250 mg tablet Take 1 tablet twice a day by oral route for 5 days. active Not Available Not Available No t Available multivita min capsule Take 1 capsule every day by oral route as directed . 2013 active Not Available Not Available Not Avai lable sertralin e 50 mg tablet TAKE 1 TABLET BY MOUTH DAILY active Not Available Not Available No t Available doxycycli ne hyclate 100 mg tablet Take 1 tablet twice a day by oral route for 10 days. active Not Available Not Available No t Available naproxen 500 mg tablet TAKE 1 TABLET BY MOUTH TWICE DAILY WITH FOOD 11/25 completed Not Available Not Available Not Available diazepam 5 mg tablet 1/2 tablet BID PRN 08/05 completed Not Available Not Available Not Available amoxicill in 875 mg-potass ium clavulana te 125 mg tablet Take 1 tablet every 12 hours by oral route as directed for 7 days. active Not Available Not Available No t Available bupropion HCl SR 200 mg tablet,12 hr sustained -release Take 1 tablet by mouth twice a day 12/14 completed Not Available Not Available Not Available Asprin Ec Low Dose 81 mg tablet,de layed release Take 1 tablet every day by oral route. 08/05 completed Not Available Not Available Not Available Vitamin D3 25 mcg (1,000 unit) capsule Take 1 capsule every other day by oral route as directed . 2017 active Not Available Not Available Not Avai lable cyclobenz aprine 5 mg tablet PRN 05/06 completed Not Available Not Available Not Available Restasis 0.05 % eye drops in a dropperet te Instill 1 drop twice a day by ophthalm ic route for 90 days. active Not Available Not Available No t Available Vigamox 0.5 % eye drops active Not Available Not Available Not Available bupropion HCl XL 150 mg 24 hr tablet, extended release TAKE 1 TABLET BY MOUTH DAILY active Not Available Not Available No t Available Glucosami ne 1500 Complex 500 mg-400 mg capsule Take by oral route. 04/04 completed Not Available Not Available Not Available nitrofura ntoin monohydra te/macroc rystals 100 mg capsule TAKE 1 CAPSULE BY MOUTH EVERY 12 HOURS FOR 5 DAYS WITH LARGE SNACK OR SMALL MEALS active Not Available Not Available No t Available Nevanac 0.1 % eye drops,talib pension active Not Available Not Available Not Available calcium 11/25 completed Not Available Not Available Not Available Glucosami ne 11/25 completed 1500 mg Not Available Not Available Not Available Nasacort TAKE 2 SPRAYS EACH NOSTRIL BID 2014 active Not Available Not Available Not Avai lable Chondroit in Sulfate 04/04 completed 300 mg Not Available Not Available Not Available multivita min 11/25 completed Not Available Not Available Not Available Calcium 600 + D(3) 2017 active Not Available Not Available Not Avai lable Orencia (with maltose) 250 mg intraveno us solution Inject by intraven ous route. 2013 active Rheumato logist does every 6 weeks Not Available Not Available Not Available Orencia 11/25 completed 750 mg Not Available Not Available Not Available Cholestyr amine Light 4 gram oral powder Take 1 scoop 3 times a day by oral route as needed. 11/29 completed Not Available Not Available Not Available Durezol 0.05 % eye drops active Not Available Not Available No t Available PEG-3350 with flavor packs 420 gram oral solution active Not Available Not Available Not Available [employer] 1.5 billion cell capsule Take 1 capsule every day by oral route in the morning for 30 days. active Not Available Not Available No t Available Lotemax 0.5 % eye ointment active Not Available Not Available Not Available PreviDent 5000 Booster Plus 1.1 % dental paste USE TO BRUSH TEETH DIRECTED BY DOCTOR active Not Available Not Available No t Available Nasacort 55 mcg nasal spray aerosol Take 2 sprays every day by nasal route at bedtime. 01/11 completed OTC Not Available Not Available Not Available Spiriva Respimat 2.5 mcg/actua tion solution for inhalatio n INHALE 2 PUFFS INTO LUNGS EVERY MORNING active Not Available Not Available No t Available Flonase Allergy Relief 50 mcg/actua tion nasal spray,talib pension Woodman 1 spray every day by intranas al route. 02/16 completed Not Available Not Available Not Available Flonase Allergy Relief 11/25 completed Not Available Not Available Not Available Stiolto Respimat 2.5 mcg-2.5 mcg/actua tion solution for inhalatio n Inhale 2 puffs every day by inhalati on route as directed for 30 days. 04/04 completed Not Available Not Available Not Available Flonase Sensimist 27.5 mcg/actua tion nasal spray,talib pension Take 2 sprays every day by nasal route as directed . 2017 active Not Available Not Available Not Avai lable Vitals Date Recorded Body height Body mass index (BMI) Body weight Heart rate Respiratory rate Oxygen saturation Oxygen saturation in Arterial blood by Pulse oximetry Systolic blood pressure Diastolic blood pressure Provider Name and Address Organization Details Last Updated DateTime 5 160.02 cm 31.4 kg/m2 22785.8 5 g 66 /min 14 /min 98 % 98 % 90 mm[Hg] 68 mm[Hg] Jayna Hernandez Neha [place] [facility] [facility] 5 12:01:43 Date Recorded Body height Body mass index (BMI) Body weight Heart rate Respiratory rate Oxygen saturation Oxygen saturation in Arterial blood by Pulse oximetry Systolic blood pressure Diastolic blood pressure Provider Name and Address Organization Details Last Updated DateTime 5 160.02 cm 31.4 kg/m2 42031.8 5 g 105 /min 16 /min 97 % 97 % 163 mm[Hg] 93 mm[Hg] Jayna Robe [facility] [facility] 5 09:53:04 Date Recorded Body height Heart rate Systolic blood pressure Diastolic blood pressure Provider Name and Address Organization Details Last Updated DateTime 04/04/2024 160.02 cm 104 /min 132 mm[Hg] 74 mm[Hg] Carmen fina Francisco [facility] [facility] 04/04/2024 09:34:22 Date Recorded Body height Body mass index (BMI) Body weight Heart rate Respiratory rate Oxygen saturation Oxygen saturation in Arterial blood by Pulse oximetry Systolic blood pressure Diastolic blood pressure Provider Name and Address Organization Details Last Updated DateTime 4 160.02 cm 31.4 kg/m2 11518.8 5 g 104 /min 14 /min 98 % 98 % 108 mm[Hg] 66 mm[Hg] Jayna Nagel [facility] [employer] [facility] 4 10:27:12 Date Recorded Body height Body mass index (BMI) Body weight Heart rate Respiratory rate Oxygen saturation Oxygen saturation in Arterial blood by Pulse oximetry Systolic blood pressure Diastolic blood pressure Provider Name and Address Organization Details Last Updated DateTime 4 160.02 cm 31.4 kg/m2 05903.8 5 g 94 /min 14 /min 98 % 98 % 123 mm[Hg] 65 mm[Hg] Jayna Nagel [facility] [employer] [facility] 4 11:29:51 Social History Question Answer Notes LastModified by Organizat ion Details LastModified Time Tobacco Smoking Status Former Smoker quit 2006 Not Available [facility] 10/28/2022 02:34:49 What Is Your Level Of Caffeine Consumption? Moderate [id number] Information not available 10/28/2022 How Much Tobacco Do You Chew? None MIGRATION.[id number] 3195 Information not available 10/28/2022 In The 14 Days Before Symptom Onset, Have You Had Close Contact With A Laboratory-confir med COVID-19 While That Case Was Ill? No MIGRATION.[id number] Information not available 10/28/2022 In The 14 Days Before Symptom Onset, Have You Had Close Contact With A Person Who Is Under Investigation For COVID-19 While That Person Was Ill? No MIGRATION.215135 [id number] Information not available 10/28/2022 What Type Of Diet Are You Following? REGULAR MIGRATION.[id number] 4932 Information not available 10/28/2022 Which Illicit Or Recreational Drugs Have You Used? None MIGRATION.960997 2695 Information not available 10/28/2022 What Was The Date Of Your Most Recent Tobacco Screening? 12/19/2021 MIGRATION.[id number] Information not available 10/28/2022 Have You Ever Been Counseled For Unhealthy Alcohol Use? No MIGRATION.730801 4594 Information not available 10/28/2022 Has Tobacco Cessation Counseling Been Provided? No MIGRATION.003358 2018 Information not available 10/28/2022 Do You Have Any Dietary Restrictions? No MIGRATION.741605 8244 Information not available 10/28/2022 Sex: Unknown Functional Status Question Answer Note LastModified by [employer] ion Details LastModified Time Do you use any illicit or recreational drugs? No MIGRATION.024653 0307 Information not available 10/28/2022 Do you or have you ever used any other forms of tobacco or nicotine? No MIGRATION.101771 6106 Information not available 10/28/2022 What is your level of alcohol consumption? Occasional MIGRATION.729230 5835 Information not available 10/28/2022 Do you or have you ever used smokeless tobacco? Never used smokeless tobacco MIGRATION.741523 2877 Information not available 10/28/2022 Do you or have you ever used e-cigarettes or vape? Never used electronic cigarettes MIGRATION.225572 6108 Information not available 10/28/2022 What is your exercise level? Occasional MIGRATION.[id number] 3413 Information not available 10/28/2022 Mental Status None recorded. Family History Relationship Description Onset Age of this Age Resolved Age Notes LastModified by Organization Details LastModified Time Mother Pulmonary embolism [id number] Not available 10/28/2022 02:40:35 Sister Pulmonary embolism MIGRATION.016 [id number] Not available 10/28/2022 02:40:35 Brother Pulmonary embolism MIGRATION.556 [id number] Not available 10/28/2022 02:40:35 Maternal Uncle Pulmonary embolism MIGRATION.253 [id number] Not available 10/28/2022 02:40:35 Notes:diabetes on both sides blood clots- mother Medical History Condition Response MRSA N SLEEP APNEA N ALLERGIES/HAYFEVER N LUNG DISEASE/DISORDER N HISTORY OF DRUG ABUSE N INSOMNIA N COPD N RADIATION / CHEMOTHERAPY N HIGH CHOLESTEROL / HYPERLIPIDEMIA Y HYPERTHYROIDISM N EYE PROBLEMS Y BLOOD DISEASES N EAR OR HEARING PROBLEMS Y HYPOTHYROIDISM N SHINGLES N DEPRESSION (INCLUDING POST ) N HAVE YOU BEEN HOSPITALIZED OR SEEN [facility] IN THE PAST YEAR ? N STROKE/TIA N ULCERS N OBESITY N HISTORY WITH COMPLICATIONS WITH ANESTHES IA ? N ANEURYSM N URINARY/BLADDER/KIDNEY PROBLEMS Y USE OF BLOOD THINNERS N NO SIGNIFICANT PAST MEDICAL HISTORY N DIABETES, TYPE N PARATHYROID DISEASE N ENT N SEASONAL ALLERGIES N HEARTBURN / REFLUX N HEPATITIS / LIVER DISEASE N SLEEP DISORDER N HEADACHES/MIGRAINES N SEIZURES/EPILEPSY N CHF N PACEMAKER N DIZZINESS N HEART DISEASE/HEART PROBLEMS N AIDS/HIV N FRACTURES N HYPERTENSION N CANCER: SPECIFY N TOURETTE'S N BLOOD TRANSFUSION N ANESTHESIA COMPLICATIONS N ANEMIA/BLOOD DISORDER N CHRONIC EAR INFECTIONS N TUBERCULOSIS N Gynecological HistoryNo gynecological history recorded. Obstetrics History GPAL:G 0 P 0 0 0 0 Immunizations Vaccine Type Date Status Note Provider Nam e and Address Organization Details Recorded Time Influenza, high-dose, trivalent, PF 8 completed Not Available [facility] 07/02/2023 10:40:00 COVID-19, mRNA, LNP-S, PF, 30 mcg/0.3 mL dose 2 completed Not Available [facility] 07/02/2023 10:40:00 Influenza, split virus, quadrivalent, preservative 2 completed Not Available [facility] 07/02/2023 10:40:00 COVID-19, mRNA, LNP-S, PF, 30 mcg/0.3 mL dose 1 completed Not Available [facility] 07/02/2023 10:40:00 COVID-19, mRNA, LNP-S, PF, 30 mcg/0.3 mL dose 1 completed Not Available [facility] 07/02/2023 10:40:00 Influenza, split virus, quadrivalent, preservative 9 completed Not Available [facility] 07/02/2023 10:40:00 Influenza, split virus, quadrivalent, preservative 9 completed Not Available [facility] 07/02/2023 10:40:00 influenza, unspecified formulation 8 completed Not Available [facility] 07/02/2023 10:40:00 Influenza, split virus, quadrivalent, preservative 7 completed Not Available [facility] 07/02/2023 10:40:00 Influenza, high-dose, trivalent, PF 6 completed Not Available [facility] 07/02/2023 10:40:00 influenza, seasonal, intradermal, preservative free 5 completed Not Available [facility] 07/02/2023 10:40:00 Influenza, split virus, trivalent, preservative 5 completed Not Available [facility] 07/02/2023 10:40:00 Influenza, split virus, trivalent, preservative 4 completed Not Available [facility] 07/02/2023 10:40:00 pneumococcal polysaccharide PPV23 7 completed Not Available [facility] 07/02/2023 10:40:00 Pneumococcal conjugate PCV 13 5 completed Not Available [facility] 07/02/2023 10:40:00 Past Encounters Encounter ID Performer Location Encounter Start Date Encounter Closed Date Diagnosis/Indication Diagnosis SNOMED-CT Code Diagnosis ICD10 Code Diagnosis Note [id number] [facility] [place] [facility] [place] [address] 11/25/2020 00:00:00 11/25/2020 15:49:14 [id number] [facility] [place] [address] 12/19/2020 00:00:00 12/19/2020 10:09:26 [id number] [facility] [address] [place] [address] 12/20/2020 00:00:00 12/20/2020 14:41:43 [id number] [facility] Pulmonolo gy [place] [address] [place] [address] 02/25/2021 00:00:00 02/25/2021 13:35:49 [id number] Jennifer Benitez MD [facility] [address] [place] [address] 03/05/2021 00:00:00 03/05/2021 15:58:04 [id number] [facility] Pulmonolo gy [place] [address] [place] [address] 07/08/2021 00:00:00 07/28/2021 22:31:50 [id number] [facility] ENT [place] [address] [place] [address] 07/17/2021 00:00:00 07/17/2021 14:47:13 [id number] Ronal Rodriguez DPM [facility] Podiatry [address] [address] 07/29/2021 00:00:00 07/29/2021 13:54:05 [id number] [facility] Pulmonolo gy [place] [address] [facility] [address] [place] [address] 08/05/2021 00:00:00 08/05/2021 12:39:49 [id number] Rodriguez DPM [facility] Podiatry [place] [address] [place] [address] 08/11/2021 00:00:00 08/11/2021 11:46:52 [id number] Rodriguez DPM [facility] Podiatry [address] [address] 08/19/2021 00:00:00 08/21/2021 09:57:51 [id number] Jennifer Benitez MD [facility] [place] [facility] [place] [address] 08/26/2021 00:00:00 08/26/2021 10:08:45 [id number] [facility] [place] [address] [place] [address] 11/10/2021 00:00:00 11/10/2021 15:52:15 [id number] Ronal Rodriguez DPM [facility] Podiatry [place] [address] [place] [address] 11/11/2021 00:00:00 11/11/2021 14:51:40 [id number] AKILAH Mejia S_GMG Pulmonolo gy [place] [address] [place] [address] 12/19/2021 00:00:00 12/19/2021 16:20:46 [id number] Ronal Rodriguez DPM S_[facility] Podiatry [place] [address] [place] [address] 02/09/2022 00:00:00 02/09/2022 12:00:25 [id number] Ronal Rodriguez DPM S[facility] Podiatry [place] [address] [place] [address] 05/28/2022 00:00:00 05/28/2022 11:20:34 [id number] Ronal Rodriguez DPM S[facility] Podiatry [place] [address] [place] [address] 06/04/2022 00:00:00 06/04/2022 11:04:41 [id number] AKILAH Mejia S[facility] Pulmonolo gy [place] [address] [place] [address] 06/23/2022 00:00:00 06/23/2022 14:43:07 [id number] Jennifer Benitez MD [facility] [place] [address] [place] [address] 07/15/2022 00:00:00 07/15/2022 08:43:10 [id number] Jennifer Benitez MD [facility] [address] [facility] [place] [address] 08/05/2022 00:00:00 08/06/2022 06:22:08 [id number] Ronal Rodriguez DPM [facility] Podiatry [place] [address] [address] 09/08/2022 00:00:00 09/14/2022 09:33:32 [id number] Ronal Rodriguez DPM [facility] Podiatry [place] [address] [address] 12/08/2022 09:49:54 12/08/2022 13:02:34 Pain in toe 397453520 M79.675 M79.674 continue offloading with conservati ve therapy for toe contractur esPatient denies surgeryRec ommend soft Toe box shoeFollow -up in 3 months Dystrophia unguium 99852 009 L60.3 Nails 1 through 10 were debrided with sharp mechanical debridemen t without incident. Nails were debrided and greater than 50% length and thickness where needed. Callosity on toe 8058958 01 L84 debrided without incidentOf floadRecom mend checking toe daily for wounds infection at present seek medical attention immediatel y [id number] Rose Mares, [facility] Franky Torres [address] [place] [address] 12/22/2022 10:23:11 12/22/2022 12:23:23 Chronic obstructive pulmonary disease 55437015 J44.9 PFT 05/2020 with moderate obstructio n.Alpha 1 MM normalCont inue Spiriva Respimat 2.5, 2 puffs daily.Inst ructed on techniqueO rder entered today to repeat PFT and walk testingShe is aware of reportable signs and symptoms.A void triggersDi scussed reportable signs and symptomsRT C in 6 months, PRN for concerns Dependence on supplemental oxygen 1586739235 07 Z99.81 Discussed the risks of hypoxia, including .6MWT completed 03/13/21Sh e required 5 liters with activity.I have again urged 100% compliance Obstructiv e sleep apnea syndrome 81613503 G47.33 Not compliant with PAP therapyHas not gotten oral applianceW e have discussed the risks of uncorrecte d LUIZ including Fatigue 67902955 R53.83 Persistent Not compliant with PAP Ex-smoker 6720704 Z87.[address] as above 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 Nails were debrided and greater than 50% length and thickness where needed. Callosity on toe 6053972 01 L84 debrided without incidentle ft 4th toeOffload Recommend checking toe daily for wounds infection at present seek medical attention immediatel y Pain in toe 162133668 M7 9.675 M79.674 continue offloading with conservati ve therapy for toe contractur esPatient denies surgeryRec ommend soft Toe box shoe, and silicon toe sleeveFoll ow-up in 3 months [id number] Jennifer Benitez MD [facility] [place] [address] [place] [address] 03/16/2023 11:53:07 03/16/2023 13:52:08 Allergic rhinitis 77896529 J30.9 Use zyrtec or daniella and use simply saline nasal spray. Will send in medrol dose pack. Depressive disorder 4908 5800 F32.A [id number] Rose Mares, [facility] Pulmonolo gy Franky Torres [address] [place] [address] 05/11/2023 09:46:03 05/11/2023 11:28:06 Obstructive sleep apnea syndrome 24168006 G47.33 Not compliant with PAP therapyHas not gotten oral applianceU nintereste d in [facility] referral todayWe have discussed the risks of uncorrecte d LUIZ including Chronic ob structive pulmonary disease 23141437 J44.9 CAT 7PFT 05/2020 with moderate obstructio n.Repeat PFT 01/2023 with ratio 63FEV1 60 with 13% improvemen t post-bronc hodilatorT LC 95RV 125DLCO corrects for alveolar volume at 109Alpha 1 MM normalIncr ease to stiolto 2 puffs daily8 weeks of samples todayInstr ucted on techniqueA lbuterol PRN - discussed indication s for useShe is aware of reportable signs and symptoms.A void triggersVa ccines this fallRTC in 2 months, PRN for concerns Dependence on supplemental oxygen 3650886275 07 Z99.81 Discussed the risks of hypoxia, including .6MWT completed 03/13/21Sh e required 5 liters with activity.R epeat 12/2022 - required 3 liters with activity - order for new POC today Atypical mycobacterial infection 517506340 A31.9 Mycobacter ium Xenopi, 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 IDCT chest 12/2020 with faint TIB bilaterall yCT chest 12/2021 with no changesRep eat in 12/2022 with increased TIB and GGO to right lung base at 31mmRechec k CT high resolution in June Rheumatoid arthritis 698 39401 M06.9 Follows rheumatolo gyContribu tor to dyspnea Fatigue 33477243 R53.83 Persistent Not compliant with PAP Ex-smoker 5611007 Z87.[address] as above Thick sputum 151618650 R 09.[address] chestShe is using flutter valve consistent ly with no benefitMay need Afflo vest [id number] Ronal Rodriguez DPM [facility] Podiatry [place] [address] [place] [address] [place] [address] 06/08/2023 09:00:56 06/08/2023 10:33:29 Bunion 152699885 M21.611 M21.612 Recommend supportive shoe gearRecomm end offloading to prevent wounds infectionP atient denies surgery secondary to agewill continue to monitor Callosity on toe 20091207 01 L84 recommend silicone offloading to sleepleft 4th toeOffload Recommend checking toe daily for wounds infection at present seek medical attention immediatel y Dystrophia unguium 74541 009 L60.3 Nails 1 through 10 were debrided with sharp mechanical debridemen t without incident. Nails were debrided and greater than 50% length and thickness where needed. [id number] Jennifer Benitez MD [facility] [place] [address] [facility] [place] [address] 06/17/2023 14:37:51 06/17/2023 15:38:47 Acute serous otitis media of left ear 2912290576 636741 H65.02 Lightheadedness 98869017 8 R42 Chronic ob structive pulmonary disease 44068515 J44.9 [id number] Rose Mares, [facility] Pulmonolo gy [place] [address] [place] [address] 07/06/2023 16:10:02 07/06/2023 17:08:49 Chronic obstructive pulmonary disease 28628799 J44.9 PFT 05/2020 with moderate obstructio n.Repeat PFT 01/2023 with ratio 63FEV1 60 with 13% improvemen t [facility] hodilatorT LC 95RV 125DLCO corrects for alveolar volume at 109Alpha 1 MM normalResu me SPiriva 2.5 two puffs daily.Samp les to patientIns tructed on techniqueA lbuterol PRN - discussed indication s for useShe is aware of reportable signs and symptoms.I recommend pulmonary rehabAvoid triggersVa ccines this fall Obstructiv e sleep apnea syndrome 87491747 G47.33 Not compliant with PAP therapyHas not gotten oral applianceU nintereste d in [facility] referral todayWe have discussed the risks of uncorrecte d LUIZ including Dependence on supplemental oxygen 2257987441 07 Z99.81 Discussed the risks of hypoxia, including .6MWT completed 03/13/21Sh e required 5 liters with activity.R epeat 12/2022 - required 3 liters with activitySh e has portable concentrat or and she has good use and clinical benefit Atypical mycobacterial infection 525911275 A31.9 Mycobacter ium Xenopi, 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 IDCT chest 12/2020 with faint TIB bilaterall yCT chest 12/2021 with no changesRep eat in 12/2022 with increased TIB and GGO to right lung base at 31mmHRCT 06/2023 with stable RUL TIB opacitiesN o suspicious nodule, enlarged lymph node, or mass Rheumatoid arthritis 698 93543 M06.9 Follows rheumatolo gyContribu tor to dyspnea Fatigue 31678445 R53.83 Persistent Not compliant with PAP Thick sputum 421939538 R 09.[address] chestShe is using flutter valve consistent ly with no benefitMay need Afflo vest Ex-smoker 1902288 Z87.[address] as above [id number] Ronal Rodriguez DPM [facility] [place] [address] [address] 2023 09:19:13 2023 10:04:48 Pain in both feet 0801033152 9766569 M79.671 M79.672 secondary to multiple deformitie shistory of failed surgerycon tinue conservati ve offloading with wide shoe gearmonito r for wounds infection daily Dystrophia unguium 89945 009 L60.3 Nails 1 through 10 were debrided with sharp mechanical debridemen t without incident. Nails were debrided and greater than 50% length and thickness where needed. [id number] Ronal Rodriguez DPM S_[facility] Podiatry [place] [address] [address] 11/30/2023 09:36:20 11/30/2023 10:31:31 Generalized osteoarthritis 730648427 M15.9 Continue supportive shoe gearmonito r for open wounds infection Dystrophia unguium 00712 009 L60.3 Nails 1 through 10 were debrided with sharp mechanical debridemen t without incident. Nails were debrided and greater than 50% length and thickness where needed. Unable to cut own toenails 230712675 Z74.1 Pain in both feet 270442 2861 6577141 M79.671 M79.672 secondary to multiple deformitie shistory of failed surgerycon tinue conservati ve offloading with wide shoe gearmonito r for wounds infection daily [id number] Ronal Rodriguez DPM [facility] [place] [address] [place] [address] 04/04/2024 09:32:13 04/04/2024 10:44:03 Generalized osteoarthritis 944320972 M15.9 Continue supportive shoe gearmonito r for open wounds infection Dystrophia unguium 17393 009 L60.3 Nails 1 through 10 were debrided with sharp mechanical debridemen t without incident. Nails were debrided and greater than 50% length and thickness where needed. Pain in both feet 537000 7097 8004315 M79.671 M79.672 secondary to multiple deformitie shistory of failed surgerycon tinue conservati ve offloading with wide shoe gear, denies wanting further surgerymon itor for wounds infection daily Unable to cut own toenails 441613539 Z74.1 [id number] Ronal Rodriguez DPM [facility] [place] [address] [address] 06/06/2024 10:24:03 06/06/2024 13:38:20 Dystrophia unguium 42090164 L60.3 Nails were debrided with sharp mechanical debridemen t without incident. Nails were debrided and greater than 50% length and thickness where needed. Unable to cut own toenails 777861036 Z74.1 Pain in toe 850372575 M7 9.675 M79.674 continue offloading with conservati ve therapy for toe contractur esPatient denies surgeryRec ommend soft Toe box shoe, and silicon toe sleeveFoll ow-up in 3 months [id number] Ronal Rodriguez DPM [facility] [place] [address] [address] 08/08/2024 11:18:08 08/25/2024 15:03:39 Dystrophia unguium 31948899 L60.3 Nails were debrided with sharp mechanical debridemen t without incident. Nails were debrided and greater than 50% length and thickness where needed. Pain in toe 211781657 M7 9.675 M79.674 continue offloading with conservati ve therapy for toe contractur esPatient denies surgeryRec ommend soft Toe box shoe, and silicon toe sleeveFoll ow-up in 3 months Unable to cut own toenails 096155433 Z74.1 [id number] Ronal Rodriguez DPM [facility] [address] [place] [address] 10/24/2024 11:33:26 10/24/2024 13:44:03 Dystrophia unguium 32013260 L60.3 Nails were debrided with sharp mechanical debridemen t without incident. Nails were debrided and greater than 50% length and thickness where needed. Pain in toe 911543926 M7 9.675 M79.674 continue offloading with conservati ve therapy for toe contractur esPatient denies surgeryRec ommend soft Toe box shoe, and silicon toe sleeveFoll ow-up in 3 months Unable to cut own toenails 018602377 Z74.1 [id number] Ronal Rodriguez DPM [facility] [place] [address] [facility] [address] [place] [address] 01/02/2025 09:50:02 01/05/2025 11:42:42 Pain of toes of bilateral feet 3539927386 5738094 M79.674 M79.675 bilateralc ontinue offloading with conservati ve therapy for toe contractur esPatient denies surgeryRec ommend soft Toe box shoe, and silicon toe sleeveFoll ow-up in 3 months Dystrophia unguium 27003 009 L60.3 Nails were debrided with sharp mechanical debridemen t without incident. Nails were debrided and greater than 50% length and thickness where needed. Health Concerns Section Related Observation LastModified by Organization Detai ls LastModified Time None Recorded Concern Status LastModified by Organization Details LastModified Time None Recorded Advance Directives Directive None Recorded Payers Insurance Date Sequence Insurance Name Policy Number Policy Fisher Covered Member ID Fisher Member ID Guarantor Name 09/29/2024 [facility] Maite Wilson Leibold [facility] Maite Wilson Leibold 04/04/2024 1 [facility] (MEDICARE REPLACEMENT/A DVANTAGE - HMO) [id number] Maite Wlison Leibold [id number] Maite A Leibold 01/01/2025 2 [place] [id number] Maite Alvaradobold [id number] Maite Wilson Leibold 12/30/2024 1 [place] Maite Alvaradobold [id number] Maite Alvaradobold Notes Date Note Type Note Provider Name and Address Organization Details Recorded Time 04/04/2024 text/html . Patient is an 83-year-old female she returns for routine foot care. Patient has multiple deformities of her toes with elongated toenails. Patient denies any open wounds or infection. Patient states her nails have become very long and she is unable to cut them. Patient states her toenails are painful she denies any redness or drainage to the toenails. Patient denies any other complaints. Ronal Rodriguez DPM [address], [facility] [address], [place], [address], [employer] 04/04/2024 10:39:37 06/06/2024 text/html . Patient is a 83-year-old female who returns the office for routine foot care. Patient is unable to cut her own toenails are elongated painful. Patient denies any other complaints. Ronal Rodriguez DPM [address], [place] [address], [place], [address], [employer] 06/06/2024 11:22:29 08/08/2024 text/html . Patient is a 83-year-old female she returns to the office for routine foot care. Patient has chronic deformities of her toes which cause intermittent pain and pressure she denies any open wounds due to her age she denies any surgery. Patient has elongated painful toenails and requests they be cut. Patient continues conservative offloading for her deformities. Ronal Rodriguez DPM [address], [place] [address], [place], [address], [employer] 08/15/2024 11:19:19 10/24/2024 text/html . Patient is an 84-year-old female who returns for routine foot care secondary to dystrophic toenails and deformities of the toes. Patient does not want surgery she has elongated painful toenails he denies any open wounds. Patient denies any other complaints. Ronal Rodriguez DPM [address], [place], [address], [employer] 10/24/2024 13:05:06 01/02/2025 text/html . Patient is an 84-year-old female she returns to the office for follow-up on routine foot care. Patient states her toenails have become elongated she is unable to cut them. Patient has multiple severe deformities of her toes which she does not want to have any surgery due to her age she has no open wounds at this time she denies any recent injury of the foot. Patient states she does have joint pain in her arthritic joints of her toes and feet. Patient states it is somewhat difficult for her to ambulate but she still is getting around. Patient denies any other complaints. Ronal Rodriguez DPM [address], [address], [place], [address], [employer] 01/02/2025 10:08:15 OBGyn Episode No OBEpisode recorded.
--- OUTSIDE RECORDS SUMMARY | 2025-02-09 08:15 | XMS_ITS | Encounter Summary ---
Author Organization [facility] Health Address [address] [place] [address] Care Team Providers Care Top Carrier Name Role Phone Marry Cardoso MD Unavailable [phone] Nadege Cervantes Primary Care Provider + Marry Cardoso MD Unavailable [phone] Jennifer Benitez MD Primary Care Provider [phone] Nadege Cervantes Primary Care Provider + Encounter Details Date Type Department Care Team (Late st Contact Info) Description 07/27/2017 [facility] Outpatient Visit [facility] [address] [place] [address] [place] [id number] [address] Social History Tobacco Use Types Packs/Day Years Used Date Smoking Tobacco: Former Cigarettes 1 08/30/2002 - 12/28/2006 Alcohol Use Standard Drinks/Week Comments Yes 0 (1 standard drink = 0.6 oz pur e alcohol) occas glass of wine Comments No Sex and Gender Information Value Date Recorded Sex Assigned at Female 01/21/2021 10:18 AM CDT Legal Sex Female 4:47 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 Gender Identity Female 01/21/2021 10:18 AM CDT Sexual Orientation Straight 01/21/2021 10 :18 AM CDT Occupation Industry Job Start Date Job End Date retired Not on file Not on file Not on file documented as of this encounter Plan of Treatment Upcoming Encounters Date Type Department Care Team (Late st Contact Info) Description 02/12/2025 8:00 AM CDT Hospital Encounter [facility] - Rheumatology [address] [facility], [address] [place] [address] [place] [address] [facility] [address] [place] [address] 03/26/2025 8:00 AM CDT Appointment [facility] - Rheumatology [address] [facility], [address] [place] [address] Mar[place] [id number] [place] [address] [address] [place] [address] 05/08/2025 8:15 AM CDT Office Visit [facility] - Rheumatology [id number] [place] [address] [address] [place] [address] Marry Cardoso MD [id number] [place] [address] [address] [place] [address] documented as of this encounter Visit Diagnoses Not on filedocumented in this encounter Care Teams Top Carrier Relationship Specialty Start Date End Date Nadege Cervantes APRN-TOWER ATTENDANT [address] [id number] PCP - General Nurse Practitioner 12/05/15 11/23/22 Marry Cardoso MD [address] [place] [address] [address] [place] [address] PCP - Attributed-MSSP 03/15/18 12/03/19 Jennifer Benitez MD [address] [place], [place] [address] [place] [id number] PCP - General Family Medicine 11/24/22 05/29/24 Nadege Cervantes APRN-TOWER ATTENDANT [address] [address] PCP - General Nurse Practitioner 05/30/24 [place] [address] [address] Basket Weaver Rheumatology 12/05/15 documented as of this encounter
--- OUTSIDE RECORDS SUMMARY | 2025-02-09 08:15 | XMS_ITS | Clinical Summary ---
Author Organization [facility] Address [address] [facility] [place] [address] Care Team Providers Care Senior Animator Name Role Phone Marry Cardoso MD Unavailable [phone] Nadege Cervantes APRN-ELECTRIC MOTOR TESTER ASSEMBLER Primary Care Provider + Source Comments [facility],non-owned Affiliates and Associated Physician Practices is amultiple site organization consisting of ambulatory clinics and hospital sitesin [place], [place], [place] and [place]. This disclosure is being madepursuant to the Care Everywhere program and may not contain all information available regarding this patient. Last updated 18.[facility] Allergies Active Allergy Reactions Criticality Noted Date [...] by mouth daily. 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 RF(+); has had IV abiotic Rx in [facility] [place] (1991); [place] 2008. Destructive carpal changes. [...] Description 01/01/2025 8:30 AM CDT Office Visit 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 - Rheumatology [address] [place] [address], [address] [place] [address] Marry Cardoso MD Discharge Disposition: Home or Self Care 12/27/2024 Travel 11/13/2024 7:51 AM CDT - 11/13/2024 11:59 PM CDT Hospital Encounter 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 - Rheumatology [address] [place] [address], [address] [place] [address] [place]oso [place] [id number] [place], [place] [address] [address] [place] [address] 03/26/2025 8:00 AM CDT Appointment [facility] - [facility]ology [address], [address] [place] [address] Marry Cardoso [place] [id number] [place], [place] [address] [address] [place] [address] 05/08/2025 8:15 AM CDT Office Visit [facility] - Rheumatology [facility] [employer] [address] [place] [address] Marry Cardoso MD [address] [place] [address] [employer] [address] [place] [address] Health Maintenance Due Date Last [...] Health Maintenance Insurance MEDICARE ANTHEM Care Teams Senior Animator Relationship Specialty Start Date End Date Nadege Cervantes APRN-BRADLEY [address] [address] PCP - General Nurse Practitioner 05/30/24 [place] [address] [phone] Cattle Driver Rheumatology 12/05/15
--- OUTSIDE RECORDS SUMMARY | 2025-02-09 08:15 | XMS_ITS | Continuity of Care Document ---
Author Organization [facility] Address [address] [place] [address] Phone Care Team Providers Care Personal Lines Sales Executive Name Role Phone Kevin Mccarthy Unavailable Unavailable [...] Copied on Encounter Office/outpati ent Visit, [facility], [address], [place], [place], [id number], [place] tel:[phone] SEC [facility] No Information 201 0 Shari Brown. [address] , [address], [place], [address], [place]. tel:[phone] Office/outpati ent Visit, [facility], [address] [place] [address] [address], [place], [place], [id number], [place] tel:[phone] [facility] No Information 0 8-201 0 Shari Brown. [facility] , [address], [place], [place], [facility], [place]. tel:[phone] [facility], [address] [place] [address] [address], [place], [place], [id number], [place] tel:[phone] [facility] No Information 4-201 0 Usama Traore. [address] [place], [place], [facility], [place]. tel:[phone] [facility], [address] [place] [address] [address], [place], [place], [id number], [place] tel:[phone] [facility] [place] No Information Sep-1 7-200 9 Forrester León. [address] [place], [place], [facility], [place]. tel:[phone] Office Consultation [facility], [address] [place] [address] [address], [place], [place], [id number], [place] tel:[phone] [facility] [place] No Information Sep-0 3-200 9 Usama Traore. [address] [place], [place], [facility], [place]. tel:[phone] Referring Provider: Kevin Wilson, [address] [place] [address] [address], [place], [address]. tel:[phone] [facility], [address] [place] [address] [address], [place], [place], [id number], [place] tel:[phone] [facility] No Information Sep-0 2-200 9 Shari Brown. [facility] , [address], [place], [place], [facility], [place]. tel:[phone] [facility], [address] [place] [address] [address], [place], [place], [id number], [place] tel:[phone] [facility] No Information Mar-0 5-200 8 Doisy Edward. [address] [facility] , [address], [place], [address], . tel:[phone] Office/outpati ent Visit, [facility], [address] [place] [address] [address], [place], [place], [address], [place] tel:[phone] SEC Yoshi Dupree No Information Mar-0 9-200 7 Bushra Franklin. [address] [place] [address], [address], [place], [place], [address], [place]. tel:[phone] Referring Provider: Abimael Carmichael OD A, [address] [place], [place] [address]ate Center [address], [place], [place], [facility]. tel:[phone] Office/outpati ent Visit, [facility], [address] [place] [address] [address], [place], [place], [address], [place] tel:[phone] SEC [facility] No Information Mar-0 6-200 7 Carmichael OD Abimael. [facility] , [address], [place], [address], [place]. tel:[phone] Office/outpati ent Visit, [facility], [address] [place] [address] [address], [place], [place], [address], [place] tel:[phone] SEC [facility] No Information Feb-2 8-200 7 Carmichael OD Abimael. [address] , [address], [place], [address], [place]. tel:[phone] Office/outpati ent Visit, [facility], [address] [place] [address] [address], [place], [place], [address], [place] tel:[phone] [facility] No Information Feb-0 3-200 7 Carmichael OD Abimael. [address] , [address], [place], [address], [place]. tel:[phone] Family History Family Member Type Diagnosis Age At Onset No Information Payers Payer name Insurance type Covered republican ID Authoriza tion(s) Medicare [facility] [id number] [place] [id number] Social History Type Description Quantity Date Captured [...]
[2025-02-09 08:31] LABS: Add Urine Microscopic? YES; Appearance Urine Clear (Clear); Color Urine Yellow (Yellow); Specific Grav Ur 1.025 (1.001-1.035)
[2025-02-09 08:32] LABS: Bilirubin Urine Negative (Negative); Blood Urine Trace-intact (Negative); Glucose Urine UA Negative (Negative); Ketones Urine Negative (Negative); Leukocyte Esterase Ur 1+ LEU/UL (Negative); Nitrate Urine Negative (Negative); Protein Urine Negative (Negative); Urobilinogen Urine 0.2 mg/dL (<2.0)
[2025-02-09 08:41] LABS: Bacteria Urine None Seen /hpf; Calcium Oxalate Crystals Urine Present /hpf; Need Manual Microscopic Reviewed; Non Pathogenic Casts 0-2; RBC Urine 0-2 /hpf (0-2); Squamous Epithelial Cell Urine Occasional /hpf (Few)
== END 2025-02-09 08:12 | disposition home or self-care (01) ==
LOC: ANHLAB 08:12
PROVIDERS: PCP Nurse Practitioner Adult Health; Visit Provider Nurse Practitioner Adult Health
DX: N39.0 Urinary tract infection, site not specified (principal)
CPT/HCPCS: 81001; 87086

== ENCOUNTER 2025-05-09 09:34 | Outpatient (CLI) | payer MEDICARE, SELFPAY ==
--- OUTSIDE RECORDS SUMMARY | 2010-06-02 10:00 | XMS_ITS | Continuity of Care Document ---
Author Organization [facility] Address [address] [place] [address] Phone Care Team Providers Care Business Mail Entry Clerk Name Role Phone Kevin Mccarthy Unavailable Unavailable Procedures Procedure Date Office/outpatient Visit, Est Office/outpatient Visit, Est Refraction Eye Exam Established Pt Ophthalmoscopy, Subsequent Eye Exam & Treatment Ophthalmoscopy, Subsequent Office Consultation Ophthalmoscopy Optic Nerve Topography Injection Eye Drug Kenalog/Triamcinolone Acetonide Inj Eye Exam & Treatment No Script Eye Exam & Treatment Refraction Office/outpatient Visit, Est Office/outpatient Visit, Est Office/outpatient Visit, Est Office/outpatient Visit, Est Advance Directives Directive Yes / No Effective Date File Name No Information Encounters Encounter Description Practice Location Reason(s) For Visit Diagnoses Date Provider Providers Copied on Encounter Office/outpati ent Visit, Est [facility], [address], [place], [place], [address], [place] tel:[phone] [facility] Center No Information 201 0 Shari Brown. [address] , [address], [place], [address], [place]. tel:[phone] Office/outpati ent Visit, [facility], [address] [place] [address] [address], [place], [place], [address], [place] tel:[phone] [facility] No Information 0 8-201 0 Shari Brown. [facility] , [address], [place], [place], [facility], [place]. tel:[phone] [facility], [address] [place] [address] [address], [place], [place], [address], [place] tel:[phone] [facility] No Information 4-201 0 Usama Traore. [address] [place], [place], [facility], [place]. tel:[phone] [facility], [address] [place] [address] [address], [place], [place], [address], [place] tel:[phone] [facility] [place] No Information Sep-1 7-200 9 Forrester León. [address] [place], [place], [facility], [place]. tel:[phone] Office Consultation [facility], [address] [place] [address] [address], [place], [place], [address], [place] tel:[phone] [facility] [place] No Information Sep-0 3-200 9 Usama Traore. [address] [place], [place], [facility], [place]. tel:[phone] Referring Provider: Kevin Wilson, [address] [place] [address] [address], [place], [address]. tel:[phone] [facility], [address] [place] [address] [address], [place], [place], [address], [place] tel:[phone] [facility] No Information Sep-0 2-200 9 Shari Brown. [facility] , [address], [place], [facility], [place]. tel:[phone] [facility], [address] [place] [address] [address], [place], [place], [address], [place] tel:[phone] [facility] No Information Mar-0 5-200 8 Doisy Edward. [address] [facility] , [address], [place], [address], . tel:[phone] Office/outpati ent Visit, [facility], [address] [place] [address] [address], [place], [place], [address], [place] tel:[phone] SEC Yoshi Dupree No Information Mar-0 9-200 7 [place]. [address] [place] [address], [address], [place], [place], [address], [place]. tel:[phone] Referring Provider: Abimael Carmichael OD A, [address] [place], [place] [address]ate [address], [place], [place], [facility]. tel:[phone] Office/outpati ent Visit, [facility], [address] [place] [address] [address], [place], [place], [address], [place] tel:[phone] SEC [facility] No Information Mar-0 6-200 7 Carmichael OD Abimael. [facility] , [address], [place], [address], [place]. tel:[phone] Office/outpati ent Visit, [facility], [address] [place] [address] [address], [place], [place], [address], [place] tel:[phone] [facility] No Information Feb-2 8-200 7 Carmichael OD Abimael. [address] , [address], [place], [address], [place]. tel:[phone] Office/outpati ent Visit, [facility], [address] [place] [address] [address], [place], [place], [address], [place] tel:[phone] [facility] No Information Feb-0 3-200 7 Carmichael OD Abimael. [address] , [address], [place], [address], [place]. tel:[phone] Family History Family Member Type Diagnosis Age At Onset No Information Payers Payer name Insurance type Covered green party ID Authoriza tion(s) Medicare [facility] [id number] [place] [id number] Social History Type Description Quantity Date Captured Comments Sex Female Smoking Status No Information Chief Complaint And Reason For Visit No Information Reason For Referral Reason For Referral No Information History Of Present Illness Encounter Date Complaint History Of Prese nt Illness No Information Functional Status Date Functional Assessmen t No Information Instructions Date Instruction Additional Infor mation No Information Assessments Type Assessment Date No Information Patient Care Teams Name Effective Dates (start - stop) Status Members No Information
--- OUTSIDE RECORDS SUMMARY | 2025-05-08 08:15 | XMS_ITS | Encounter Summary ---
Author Organization [facility] Address [address] [place] [address] Care Team Providers Care Motion Graphics Designer Name Role Phone Marry Cardoso MD Unavailable [phone] Nadege Cervantes APRN-ENTRY LEVEL ELECTRICAL ENGINEER Primary Care Provider + Reason for Visit * Reason Comments Follow-up Encounter Details Date Type Department Care Team (Late st Contact Info) Description 05/08/2025 8:15 AM CDT Office Visit [facility] Medical [facility] - Rheumatology [id number] [place] [address] [place] [id number] [place] [address] [facility] [address] [place] [address] Rheumatoid arthritis of multiple sites without organ or system involvement with positive rheumatoid factor (HCC) (Primary Dx); Polyarthralgia; High risk medications (not anticoagulants) long-term use; Lassitude; Vitamin D deficiency; Osteopenia of multiple sites; Immunosuppressed status (HCC); 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); Postmenopausal osteoporosis Social History Tobacco Use Types Packs/Day Years Used Date Smoking Tobacco: Former Cigarettes 1 08/30/2002 - 12/28/2006 Smokeless Tobacco: Former Tobacco Cessation:Counseling Given: Not Answered Alcohol Use Standard Drinks/Week Comments Yes 0 (1 standard drink = 0.6 oz pur e alcohol) Rare PHQ-2 Answer Date Recorded Patient Health Questionnaire-2 Score 0 05/08/2025 Comments No Sex and Gender Information Value Date Recorded Sex Assigned at Female 01/21/2021 10:18 AM CDT Legal Sex Female 4:47 AM SKI PATROL DIRECTOR Gender Identity Female 01/21/2021 10:18 AM CDT Sexual Orientation Straight 01/21/2021 10 :18 AM CDT Occupation Industry Job Start Date Job End Date retired Not on file Not on file Not on file documented as of this encounter Last Filed Vital Signs Vital Sign Reading Time Taken Comments Blood Pressure 136/76 05/08/2025 8:02 AM CDT Pulse 113 05/08/2025 8:02 AM CDT Temperature - - Respiratory Rate - - Oxygen Saturation 90% 05/08/2025 8:02 AM CDT Inhaled Oxygen Concentration - - Weight 78.9 kg (174 lb) 05/08/2025 8:02 AM CDT Height 160 cm (5' 3) 05/08/2025 8:02 AM CDT Body Mass Index 30.82 05/08/2025 8:02 AM CDT documented in this encounter Functional Status * Over the past 2 weeks, how often have you been bothered by any of the following problems? Question Answer Date of Assessment Author Little interest or pleasure in doing things Not at all 05/08/2025 8:00 AM CDT Keiko Salazar MA Feeling down, depressed, or hopeless Not at all 05/08/2025 8:00 AM CDT Keiko Salazar MA Patient Health Questionnaire -2 Score 0 05/08/2025 8:00 AM CDT Keiko Salazar MA documented as of this encounter Patient Instructions * Patient Instructions* Marry Cardoso MD - 05/08/2025 8:15 AM CDT Labs in a month Follow up in 3 months or with her next infusion Rheumatoid Arthritis WHAT YOU NEED TO KNOW: What is rheumatoid arthritis? Rheumatoid arthritis (RA) is a long-term autoimmune disease that causes inflammation and damage to your joints. RA causes your body's immune system to attack the synovial membrane (lining) in your joints. RA can also affect other organs, such as your eyes, heart, or lungs. It may also increase your risk for osteoporosis (weakened bones). What increases my risk for RA? Being a woman A family history of RA Age between 30 and 60 years old Smoking cigarettes What are the signs and symptoms of RA? Joint pain and stiffness that lasts longer than 1 hour Swollen joints in the same joint on both sides of your body Loss of joint movement Firm, round nodules (growths) on your joints Fatigue or muscle weakness Loss of appetite or weight loss How is RA diagnosed? Blood tests may be used to check for signs of infection or inflammation. X-ray or MRI pictures may be taken of the bones and tissues in your joints. You may be given contrast liquid as a shot into the joint to help your joint show up better. Tell the healthcare provider if you have ever had an allergic reaction to contrast liquid. Do not enter the MRI room with anythingmetal. Metal can cause serious injury. Tell the healthcare provider if you have any metal in or on your body. Arthrocentesis is a procedure used to drain fluid out of a joint. The fluid is tested for infectionor other problems that can cause arthritis. Synovial biopsy may be used if your joint fluid cannot be drained or if you have signs of an infection. A piece of tissue is removed from the lining of a joint. The tissue is tested for possible causes of your arthritis. How is RA treated? Medicines: Antirheumatics help slow the progress of RA, and reduce pain, stiffness, and inflammation. NSAIDs , such as ibuprofen, help decrease swelling, pain, and fever. NSAIDs can cause stomach bleeding or kidney problems in certain people. If you take blood thinner medicine, always ask your healthcare provider if NSAIDs are safe for you. Always read the medicine label and follow directions. Steroids: This medicine may be given to decrease inflammation. Biologic therapy helps decrease joint swelling, pain, and stiffness. These medicines increase the risk of serious infection. Your healthcare provider will need to monitor you closely while you are taking these medicines. Surgery may be done to take out all or part of the joint and put in an artificial joint. This may help reduce pain and repair the joint. Surgery may also be done if you have a joint infection or if the bones in your spine are pressing on nerves. What can I do to manage my symptoms? Go to physical and occupational therapy as directed. A physical therapist can teach you exercises to help improve movement and strength, and to decrease pain. An occupational therapist can teach you skills to help with your daily activities. Use support devices as directed. You may be given splints to wear on your hands to help your jointsrest and to decrease inflammation. While you sleep, use a pillow that is firm enough to support your neck and head. Rest when needed. Rest is important if your joints are painful. Limit your activities until your symptoms improve. Gradually start your normal activities when you can do them without pain. Avoid motions and activities that cause strain on your joints, such as heavy exercise and lifting. Use ice or heat. Both can help decrease swelling and pain. Ice may also help prevent tissue damage.Use an ice pack, or put crushed ice in a plastic bag. Cover it with a towel and place it on your joint for 15 to 20 minutes every hour or as directed. You can apply heat for 20 minutes every 2 hours.Heat treatment includes hot packs or heat lamps. Physical activity can help increase strength and flexibility. Be as active as possible while avoiding things that increase your pain. Ask your healthcare provider or hot header operator about the best exercise plan for you. When should I seek immediate care? You have increased joint swelling, pain, or redness. You have sudden shortness of breath. You lose feeling in your hands or feet. You lose feeling on one side of your body. You are not able to control the urge to have a bowel movement or to urinate. When should I contact my healthcare provider? You have a fever. Your skin is itchy, swollen, or has a rash. Your symptoms are getting worse, even with treatment. You have questions or concerns about your condition or care. CARE AGREEMENT: You have the right to help plan your care. Learn about your health condition and how it may be treated. Discuss treatment options with your caregivers to decide what care you want to receive. You always have the right to refuse treatment. The above information is an visual aid expert only. It is not intended as medical advice for individual conditions or treatments. Talk to your doctor, nurse or pharmacist before following any medical regimen to see if it is safe and effective for you. ?? 2016 [employer]. Information is for End User's use only and may not be sold, redistributed or otherwise used for commercial purposes. All illustrations and images included in CareNotes?? are the copyrighted property of [employer] or [employer]. documented in this encounter Progress Notes * Marry Cardoso MD - 05/08/2025 8:12 AM CDT Images from the original note were not included. Subjective: Rheumatology Progress Note Maite Rojas 1940 Returns after 4 months for follow-up for seropositive rheumatoid arthritis PCP: Nadege Cervantes APRN-BRADLEY Stiffness: Couple of minutes History 84-year-old female, here for management of seropositive rheumatoid arthritis. Diagnosis elsewhere 1990. RF(+); has had IV abiotic Rx in [place], [place] (1991); Orencia 2008. Destructive carpal changes. Orencia tapered 10/2011; unable to tolerate lower frequency than every 8 weeks. Today patient states that she is doing very well on Orencia. No joint pain or morning stiffness. Orencia has made big difference. Hip pain is much better ever since she took Flexeril . Patient reduced Orencia to every 8 weeks with worsening pain in the hands. Locking of the finger from [id number]. Difficulty to make a fist.. On the last visit, I increased it to every 6 weeks. Today, patient is here for a follow-up. overall doing well. Denies any joint pain, stiffness or swelling. No other complaints Review of Systems Fever: - Rash: - Raynaud's: - Nodules: - Med Side Effects: - Hair Loss: - Diff. swallowing: - Dry Eyes: + Dry Mouth: + Takes Meds: + Depression: - Swelling: - Smoke: - ETOH: - Sx: - Chest Pain: - Dyspnea: - GI Sx: - Active Ambulatory Problems Diagnosis Date Noted Fx wrist 11/07/2008 High blood cholesterol 11/07/2008 DVT (deep venous thrombosis) ([facility]) 11/07/2008 Vitamin D deficiency 02/15/2009 Screening for condition 07/08/2009 Osteopenia 03/15/2010 Osteoarthritis, knee 06/24/2010 Rheumatoid arthritis of multiple sites without organ or system involvement with positive rheumatoidfactor ([facility]) 08/09/2015 Resolved Ambulatory Problems Diagnosis Date Noted No Resolved Ambulatory Problems Past Medical History: Diagnosis Date Depression OA (osteoarthritis) of knee RA (rheumatoid arthritis) ([facility]) Wrist fracture Wrist fracture Elaborate on positives: Family History Problem Relation Name Age of Onset CAD (Coronary Artery Disease) Father Current Outpatient Medications Medication abatacept (ORENCIA) IV injection albuterol (PROVENTIL;VENTOLIN) (2.5 MG/3ML) 0.083% nebulizer solution aspirin EC (Ecotrin) 81 MG tablet buPROPion SR 12hr (WELLBUTRIN-SR) 150 MG tablet Calcium Carbonate-Vit D-Min 4471-3950 MG-UNIT CHEW fluticasone propionate (FLONASE) 50 MCG/ACT nasal spray furosemide (LASIX) 20 MG tablet GLUCOSAMINE COMPLEX PO losartan (Cozaar) 50 MG tablet meclizine (Antivert) 25 MG tablet montelukast (SINGULAIR) 10 MG tablet MULTIVITAMIN PO nitrofurantoin monohyd macro crystals (Macrobid) 100 MG capsule RESTASIS 0.05 % ophthalmic suspension sertraline (ZOLOFT) 50 MG tablet simvastatin (ZOCOR) 20 MG tablet tiotropium (SPIRIVA) 2.5 MCG/ACT inhaler Tiotropium [place]-Olodaterol 2.5-2.5 MCG/ACT vitamin D 1000 UNIT tablet No current facility-administered medications for this visit. Current Outpatient Medications Medication abatacept (ORENCIA) IV injection albuterol (PROVENTIL;VENTOLIN) (2.5 MG/3ML) 0.083% nebulizer solution aspirin EC (Ecotrin) 81 MG tablet buPROPion SR 12hr (WELLBUTRIN-SR) 150 MG tablet Calcium Carbonate-Vit D-Min 1003-3376 MG-UNIT CHEW fluticasone propionate (FLONASE) 50 MCG/ACT nasal spray furosemide (LASIX) 20 MG tablet GLUCOSAMINE COMPLEX PO losartan (Cozaar) 50 MG tablet meclizine (Antivert) 25 MG tablet montelukast (SINGULAIR) 10 MG tablet MULTIVITAMIN PO nitrofurantoin monohyd macro crystals (Macrobid) 100 MG capsule RESTASIS 0.05 % ophthalmic suspension sertraline (ZOLOFT) 50 MG tablet simvastatin (ZOCOR) 20 MG tablet tiotropium (SPIRIVA) 2.5 MCG/ACT inhaler Tiotropium [place]-Olodaterol 2.5-2.5 MCG/ACT vitamin D 1000 UNIT tablet No current facility-administered medications for this visit. Physical Exam Constitutional: Well-developed, well-nourished, and in no distress. No distress. HENT: Head: Normocephalic and atraumatic. Eyes: EOM are normal. Pupils are equal, round, and reactive to light. Neck: Normal range of motion. Cardiovascular: Normal rate and regular rhythm. Pulmonary/Chest: Breath sounds normal. Abdominal: Soft. Musculoskeletal: Worthing neck deformity of 4th finger, mild swelling of the MCP joints, bilateral kneecrepitus, swelling of the ankles, good range of motion of all the other joints with no active synovitis Skin: Skin is warm. Psychiatric: Affect normal. MHAQ: 2.3 Pain: 3 Global: 2.5 Rapid 3: 7.8 Sleep: 0 GI: 0 Fatigue: 1.5 05/08/2025 8:02 AM 03/26/2025 8:03 AM 03/26/2025 8:02 AM RHEUM VITALS BP 136/76 120/60 Pulse 113 105 Wgt 174 lbs 176 lbs 01/01/2025 8:00 AM 09/28/2024 8:00 AM 05/30/2024 8:00 AM RHEUM DARLINE MHAQ 2 1 1.3 Pain 2 2.5 2 Global 2 1.5 3.5 Rapid 3 6 5 6.8 Sleep 0 0 1 GI 0 0 0 Fatigue 2 0.5 2 @IPVITALS(6:69979)@ Ortho Exam @PHYSICALEXAM@ No results for input(s): CCPIGG in the last 45963 hours. Recent Labs Component Name 03/16/25111610/30/24 11307/04/24 1040 WBC 6.7 6.6 6.6 RBC 4.26 4.32 4.47 HGB 13.2 13.3 13.8 HCT 41.5 41.8 42.7 MCV 97 97 96 MCHC 31.8 31.8 32.3 RDW 12.8 12.4 12.2 PLTCOUNT 198 222 224 MONOCYTPCT 9 8 9 EOSINPCT 5 6 6 LYMPHABS 3.0 2.8 3.1 MONOCYTABS 0.6 0.5 0.6 BASOABS 0.1 0.1 0.1 IMMGRANSABS 0.0 0.0 0.0 No results for input(s): C4 in the last 02701 hours. No results for input(s): CRPHISENS in the last 08109 hours. Recent Labs Component Name 03/16/25111610/30/24 11307/04/24 1040 SODIUM 143 141 143 POTASSIUM 4.8 4.3 4.3 CHLORIDE 102 100 100 CO2 27 28 30* BUN 18 25 25 CREATININE 0.91 0.98 0.92 GLUCOSE 84 78 85 CALCIUM 9.7 9.6 9.9 No results for input(s): SMAB, SMRNPAB, SSAAB, SSBAB, DYV70XZ in the last 79066 hours. Recent Labs Component Name 03/16/25 1117 SEDRATE 23 No orders of the defined types were placed in this encounter. Radiology: No orders of the defined types were placed in this encounter. Assessment/Plan: 84-year-old female with Seropositive rheumatoid arthritis, currently on Orencia infusions, doing well with some worsening pain in the hands, she is on Orencia every 6 weeks since September,, doing well with minimal disease activity at this time -I will continue with Orencia every 6 weeks . Will hold today's infusion as she may have UTI -advised the patient to do some home exercises with stress ball for the hands -labs are up-to-date and stable -I will repeat labs in a month -continue with anti-inflammatory as needed for the pain Pain in the back, may be UTI? -patient has an appointment with primary care physician where she will have the urine test done -I will hold today's infusion Ulnar neuropathy -advised the patient to wear wrist splint -if no improvement, we can consider referring to hand doctor Pain in bilateral knees -Improved Mildly low kidney function, patient was going through a lot of stress -advised the patient to drink plenty of water and avoid NSAIDs. -I will repeat on the next visit Bone health -vitamin-D normal Osteopenia of multiple sites -bone density was stable from June,. It is scanned in the media. Repeated in 2023. Advisedthe patient to send us the records -continue with calcium and vitamin-D High-risk medication Immunosuppressed status Return to clinic in 3 months with the nurse practitioner High risk medications . Will need lab monitoring including CBC, CMP, ESR and CRP More than 35 minutes spent with the patient. including discussion of the diagnosis, treatment options, preparation of the chart, chart review, review of imaging and labs. AVS printed and handed over to the patient Marry Cardoso MD documented in this encounter Plan of Treatment Upcoming Encounters Date Type Department Care Team (Late st Contact Info) Description 06/19/2025 8:00 AM CDT Appointment [facility] - Rheumatology [address] [facility] [place] [address] [place] [address] [facility] [address] [place] [address] Scheduled Orders Name Type Priority Associated Diagnoses Orde r Schedule CBC WITH DIFFERENTIAL Lab Routine Rheumatoid arthritis of multiple sites without organ or system involvement with positive rheumatoid factor (HCC) Polyarthralgia High risk medications (not anticoagulants) long-term use Lassitude Vitamin D deficiency Osteopenia of multiple sites Immunosuppressed status (HCC) 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 Ordered: 05/08/2025 COMPREHENSIVE METABOLIC PANEL Lab Routine Rheumatoid arthritis of multiple sites without organ or system involvement with positive rheumatoid factor (HCC) Polyarthralgia High risk medications (not anticoagulants) long-term use Lassitude Vitamin D deficiency Osteopenia of multiple sites Immunosuppressed status (HCC) 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 Ordered: 05/08/2025 C-REACTIVE PROTEIN Lab Routine Rheumatoid arthritis of multiple sites without organ or system involvement with positive rheumatoid factor (HCC) Polyarthralgia High risk medications (not anticoagulants) long-term use Lassitude Vitamin D deficiency Osteopenia of multiple sites Immunosuppressed status (HCC) 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 Ordered: 05/08/2025 ERYTHROCYTE SEDIMENTATION RATE Lab Routine Rheumatoid arthritis of multiple sites without organ or system involvement with positive rheumatoid factor (HCC) Polyarthralgia High risk medications (not anticoagulants) long-term use Lassitude Vitamin D deficiency Osteopenia of multiple sites Immunosuppressed status (HCC) 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 Ordered: 05/08/2025 VITAMIN D 25-HYDROXY Lab Routine Rheumatoid arthritis of multiple sites without organ or system involvement with positive rheumatoid factor (HCC) Polyarthralgia High risk medications (not anticoagulants) long-term use Lassitude Vitamin D deficiency Osteopenia of multiple sites Immunosuppressed status (HCC) 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 Ordered: 05/08/2025 documented as of this encounter Visit Diagnoses Diagnosis Rheumatoid arthritis of multiple sites without organ or system involvement with positive rheumatoid factor (HCC)- Primary Polyarthralgia Pain in joint, multiple sites High risk medications (not anticoagulants) long-term use Encounter for long-term (current) use of other medications Lassitude Other malaise and fatigue Vitamin D deficiency Osteopenia of multiple sites Immunosuppressed status (HCC) Unspecified disorder of immune mechanism 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
[2025-05-09 10:08] LABS: Add Urine Microscopic? YES; Appearance Urine Cloudy (Clear); Glucose Urine UA Negative (Negative); Leukocyte Esterase Ur 2+ LEU/UL (Negative); Need Manual Microscopic Reviewed; Nitrate Urine Negative (Negative); Non Pathogenic Casts 0-2; Specific Grav Ur 1.017 (1.001-1.035)
--- OUTSIDE RECORDS SUMMARY | 2025-05-09 10:22 | XMS_ITS | Clinical Summary ---
Author Organization [facility] Address [address] [place] [address] Care Team Providers Care Box Coverer Hand Name Role Phone Nadege Cervantes NP Primary Care Provider [phone] Allergies Active Allergy Reactions Criticality Noted Date [...] 10/04/2006 Surgical History Surgery Date Site/Laterality Comments GA CHOLECYSTECTOMY Cholecystectomy - (Added by TW Conv) [...] Used Date Smoking Tobacco: Former Cigarettes 0.1 19.7 2 006 - 1960 Tobacco Cessation:Counseling Given: Not Answered Comments Unknown Sex and Gender Information Value Date Recorded Sex Assigned at Not on file Legal Sex Female 12:29 AM CHIEF BUSINESS DEVELOPMENT OFFICER Gender Identity Female 07/30/2022 2:03 PM CHIEF BUSINESS DEVELOPMENT OFFICER Sexual Orientation Bisexual 07/30/2022 2: 03 PM CHIEF BUSINESS DEVELOPMENT OFFICER Obstetrics History Last Filed Vital Signs Vital Sign Reading Time Taken Comments Blood Pressure 102/50 12/25/2024 10:13 AM CDT Pulse 105 12/25/2024 10:13 AM CDT Temperature 36.9 C (98.4 F) 12/25/2024 10:13 AM CDT Respiratory Rate 18 09/25/2024 11:07 AM CHIEF BUSINESS DEVELOPMENT OFFICER Oxygen Saturation 97% 12/25/2024 10:13 AM CDT [...] Fall Risk Assessment 07/28/2023 07/28/2022 Covid-19 Vaccine (2024-2 6 season) 2025 05/23/2022, 05/23/2022, 06/30/2021, Additional history exists Influenza Vaccine (#1) 2025 , 06/14/2021, 06/08/2019, Additional history exists Pneumococcal vaccine 65+ Completed 2014, 12/2006 Insurance MEDICARE [facility] MEDICARE SUPPLEMENT MEDICARE Advance Directives For more information, please contact: [phone] * Full Code (Latest Code Status on File) Date Activated Date Inactivated Comments 07/24/2022 6:38 PM 07/28/2022 6:18 PM Care Teams Box Coverer Hand Relationship Specialty Start Date End Date Nadege Cervantes NP PCP - General Nurse Practitioner 07/24/22
--- OUTSIDE RECORDS SUMMARY | 2025-05-09 10:22 | XMS_ITS | Clinical Summary ---
Author Organization [facility] Address [address] [place] [address] Care Team Providers Care Client Manager Name Role Phone Unavailable Primary Care Provider Unavailabl e Social History Tobacco Use Types Packs/Day Years Used Date Smoking Tobacco: Never Assessed Comments Unknown Sex and Gender Information Value Date Recorded Sex Assigned at Not on file Legal Sex Female 7:10 PM CDT Gender Identity Not on file Sexual Orientation Not on file Plan of Treatment Health Maintenance Due Date Last Done Comments DTaP, Tdap and Td Vaccines ( 1 - Tdap) 1959 Pneumococcal Vaccine: 50+ Ye ars (1 of 1 - PCV) 1990 Zoster Vaccines (1 of 2) 1990 Dexa Scan (General) 2005 RSV Immunization or 60+ Years (1 - 1-dose 75+ series) 2015 COVID-19 Vaccine (2023-2 5 season) 2025 Meningococcal B Vaccine Aged Out No l onger eligible based on patient's age to complete this topic Meningococcal Vaccine Aged Out No brennon dorina eligible based on patient's age to complete this topic RSV Immunizations Under 20 Months Aged Out No longer eligible based on patient's age to complete this topic
--- OUTSIDE RECORDS SUMMARY | 2025-05-09 10:22 | XMS_ITS | Clinical Summary ---
Author Organization [facility] Capital Float Address [address] [facility] [place] [address] Care Team Providers Care Auto Body Man Name Role Phone Marry Cardoso MD Unavailable [phone] Nadege Cervantes APRN-FURNACE ATTENDANT Primary Care Provider + Source Comments [facility],non-owned Affiliates and Associated Physician Practices is amultiple site organization consisting of ambulatory clinics and hospital sitesin [place], [place], [place] and [place]. This disclosure is being madepursuant to the Care Everywhere program and may not contain all information available regarding this patient. Last updated 18.[facility] Allergies Active Allergy Reactions Criticality Noted Date [...] by mouth daily. Active Calcium Carbonate-Vit D-Min 2811-0152 MG-UNIT CHEW Take by mouth once daily [...] 750mg IV every 6 weeks, Reported on 03/26/2025 RESTASIS 0.05 % ophthalmic suspension Instill 1 (one) drop into both eyes 2 times daily 4 6 Active sertraline (ZOLOFT) 50 MG tablet Take 1 (one) tablet by mouth once daily Active fluticasone propionate (FLONASE) 50 MCG/ACT nasal spray [place] 2 (two) sprays into each nostril once [...] SR 12hr (WELLBUTRIN-SR) 150 MG tablet Take 2 (two) tablets by mouth once daily Active aspirin EC [...] LARGE SNACK OR SMALL MEALS Active Tiotropium [place]-Olodate rol 2.5-2.5 MCG/ACT Inhale 2 puffs by mouth once daily 5 12/26/19 26 Active Active Problems Problem Noted Date Diagnosed Date 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 RF(+); has had IV abiotic Rx in [facility] [place] (1991); [place] 2008. 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); Postmenopausal osteoporosis 05/08/2025 Telephone [facility] - Rheumatology [facility] [employer], [address] [place] [address] Marry aCrdoso MD 03/26/2025 7:47 AM CDT - 03/26/2025 11:59 PM CDT Hospital Encounter [facility] - Rheumatology [id number] [address] [place] [address] Marry Cardoso MD Discharge Disposition: Home or Self Care 03/17/2025 Results Follow-Up [facility] Rheumatology [address] [place] [address] [address] [place] [address] Marry Cardoso MD 02/12/2025 7:50 AM CDT - 02/12/2025 11:59 PM CDT Hospital Encounter [facility] Rheumatology [address] [place] [address], [address] [place] [address] Marry Cardoso MD Discharge Disposition: Home or [...] AM CDT 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 Gender Identity Female 01/21/2021 10:18 AM CDT Sexual Orientation Straight 01/21/2021 10 :18 AM CDT Occupation Industry Job Start Date Job End Date retired Not on file Not on file Not on file Last Filed Vital Signs Vital Sign Reading Time Taken Comments Blood Pressure 136/76 05/08/2025 8:02 AM CDT Pulse 113 05/08/2025 8:02 AM CDT Temperature 36.9 C (98.4 F) 03/26/2025 8:03 AM CDT Respiratory Rate 18 11/13/2024 8:11 AM CDT Oxygen Saturation 90% 05/08/2025 8:02 AM CDT Inhaled Oxygen Concentration - - Weight 78.9 kg (174 lb) 05/08/2025 8:02 AM CDT Height 160 cm (5' 3) 05/08/2025 8:02 AM CDT Body Mass Index 30.82 05/08/2025 8:02 AM CDT Plan of Treatment Upcoming Encounters Date Type Department Care Team (Late st Contact Info) Description 06/19/2025 8:00 AM CDT Appointment [facility] - Rheumatology [address] [place] [address], [address] [place] [address] [place] [id number] [place] [address] [place] [address] Health Maintenance Due Date Last Done Comments MEDICARE AWV 12 MONTHS 1940 DTAP/TDAP/TD VACCINES (1 - Tdap) 1959 ZOSTER VACCINE (1 of 2) 1959 Respiratory Syncytial Virus (RSV) Vaccine Pt: or over 60 yrs (1 - 1-dose 75+ series) 2015 COVID-19 VACCINE (4 - season) 2025 05/23/2022, 10/14/2020, 09/23/2020 INFLUENZA VACCINE (#1) 2025 2, 05/23/2022, 06/14/2021, Additional history exists PNEUMOCOCCAL VACCINE 50+ Completed 2014, 12/2006 BONE DENSITY TESTING Completed 08/17/2023, 02/08/2015, 10/10/2009 DEPRESSION SCREENING Completed 05/08/2025, 05/30/20 HEPATITIS B VACCINE Aged Out No longe [...] Procedure Name Priority Date/Time Associated Diagnosis Comments VITAMIN D 25-HYDROXY Routine 03/16/2025 11:17 AM CDT Rheumatoid arthritis of multiple sites without organ or system involvement with positive rheumatoid factor (HCC) Polyarthralgia High risk medications (not anticoagulants) long-term use Lassitude Vitamin D deficiency Osteopenia of multiple sites Immunosuppressed status (HCC) 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) Flare of rheumatoid arthritis (HCC) ERYTHROCYTE SEDIMENTATION RATE Routine 03/16/2025 11:17 AM CDT Rheumatoid arthritis of multiple sites without organ or system involvement with positive rheumatoid factor (HCC) Polyarthralgia High risk medications (not anticoagulants) long-term use Lassitude Vitamin D deficiency Osteopenia of multiple sites Immunosuppressed status (HCC) 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) Flare of rheumatoid arthritis (HCC) C-REACTIVE PROTEIN Routine 03/16/2025 11 :17 AM CDT Rheumatoid arthritis of multiple sites without organ or system involvement with positive rheumatoid factor (HCC) Polyarthralgia High risk medications (not anticoagulants) long-term use Lassitude Vitamin D deficiency Osteopenia of multiple sites Immunosuppressed status (HCC) 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) Flare of rheumatoid arthritis (HCC) COMPREHENSIVE METABOLIC PANEL Routine 03/16/2025 11:17 AM CDT Rheumatoid arthritis of multiple sites without organ or system involvement with positive rheumatoid factor (HCC) Polyarthralgia High risk medications (not anticoagulants) long-term use Lassitude Vitamin D deficiency Osteopenia of multiple sites Immunosuppressed status (HCC) 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) Flare of rheumatoid arthritis (HCC) CBC W AUTO DIFFERENTIAL Routine 03/16/2025 11:17 AM CDT Rheumatoid arthritis of multiple sites without organ or system involvement with positive rheumatoid factor (HCC) Polyarthralgia High risk medications (not anticoagulants) long-term use Lassitude Vitamin D deficiency Osteopenia of multiple sites Immunosuppressed status (HCC) 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) Flare of rheumatoid arthritis (HCC) DEXA BONE DENSITY 2 SITES 08/17/2023 from Last 3 Months or Most Recently Relevant to Health Maintenance Results * C-REACTIVE PROTEIN (03/16/2025 11:17 AM CDT) Pathologist [facility] C-Reactive Protein 2 0 - 10 mg/L [facility] INSURANCE BILL Blood BLOOD SPECIMEN / Unknown 03/16/2025 11:17 AM CDT 03/16/2025 Narrative [facility] INSURANCE BILL - 03/17/2025 9:10 AM CDT Performed at: [address] [place] [address] [place] [id number] Distilling Department Supervisor: Billy Hernández PhD, Phone: [phone] us Marry Cardoso MD LAB - CHEMISTRY ORDERABLES Olamide l Result [facility] INSURANCE BILL [address] [place] [address] * VITAMIN D 25-HYDROXY (03/16/2025 11:17 AM CDT) Vitamin D, 25 Hydroxy 64.3 30.0 - 100.0 ng/mL [facility] INSURANCE BILL Comment: Vitamin D deficiency has been defined by the [place] of Medicine and an Endocrine Society practice guideline as a level of serum 25-OH vitamin D less than 20 ng/mL (1,2). The Endocrine Society went on to further define vitamin D insufficiency as a level between 21 and 29 ng/mL (2). 1. IOM ([place] of Medicine). 2010. Dietary reference intakes for calcium and D. [place]: The National Academies Press. 2. Sabrina DUKES, Tristian JENKINS, Juan JORDAN, et al. Evaluation, treatment, and prevention of vitamin D deficiency: an Endocrine Society clinical practice guideline. JCEM. 2010; 96(7):1911-30. Blood BLOOD SPECIMEN / Unknown 03/16/2025 11:17 AM CDT 03/16/2025 Narrative [facility] INSURANCE BILL - 03/17/2025 9:10 AM CDT Performed at: [address] [place] [id number] Distilling Department Supervisor: Billy Hernández PhD, Phone: [phone] Marry Cardoso MD LAB - CHEMISTRY ORDERABLES Olamide l Result Performing Organization Address [facility] de Phone Number [facility] INSURANCE BILL [address] [place] [address] * ERYTHROCYTE SEDIMENTATION RATE (03/16/2025 11:17 AM CDT) Pathologist [facility] Erythrocyte Sedimentation Rate Westergren 23 0 - 40 mm/hr [facility] INSURANCE BILL Blood BLOOD SPECIMEN / Unknown 03/16/2025 11:17 AM CDT 03/16/2025 Narrative [facility] INSURANCE BILL - 03/17/2025 8:10 AM CDT Performed at: [address] [place] [id number] Distilling Department Supervisor: Billy Hernández PhD, Phone: [phone] Marry Cardoso MD LAB - HEMATOLOGY ORDERABLES Fin al Result Performing Organization Address [facility] de Phone Number [facility] INSURANCE BILL [address] [place] [address] * CBC WITH DIFFERENTIAL (03/16/2025 11:17 AM CDT) Pathologist [facility] WBC 6.7 3.4 - 10.8 x10E3/uL [facility] INSURANCE BILL RBC 4.26 3.77 - 5.28 x10E6/uL [facility] INSURANCE BILL Hemoglobin 13.2 11.1 - 15.9 g/dL [facility] INSURANCE BILL Hematocrit 41.5 34.0 - 46.6 % [facility] INSURANCE BILL MCV 97 79 - 97 fL [facility] INSURANCE BILL MCH 31.0 26.6 - 33.0 pg [facility] INSURANCE BILL MCHC 31.8 31.5 - 35.7 g/dL [facility] INSURANCE BILL RDW 12.8 11.7 - 15.4 % [facility] INSURANCE BILL Platelet Count 198 150 - 450 x10E3/uL [facility] INSURANCE BILL Granulocytes % 41 Not Estab. % [facility] INSURANCE BILL Lymphocytes % 44 Not Estab. % [facility] INSURANCE BILL Monocytes % 9 Not Estab. % [facility] INSURANCE BILL Eosinophils % 5 Not Estab. % [facility] INSURANCE BILL Basophils % 1 Not Estab. % [facility] INSURANCE BILL Granulocytes Absolute 2.7 1.4 - 7.0 x10E3/uL [facility] INSURANCE BILL Lymphocytes Absolute 3.0 0.7 - 3.1 x10E3/uL [facility] INSURANCE BILL Monocytes Absolute 0.6 0.1 - 0.9 x10E3/uL [facility] INSURANCE BILL Eosinophils Absolute 0.3 0.0 - 0.4 x10E3/uL [facility] INSURANCE BILL Basophils Absolute 0.1 0.0 - 0.2 x10E3/uL [facility] INSURANCE BILL Immature Granulocytes 0 Not Estab. % [facility] INSURANCE BILL Immature Granulocytes Absolute 0.0 0.0 - 0.1 x10E3/uL [facility] INSURANCE BILL Blood BLOOD SPECIMEN / Unknown 03/16/2025 11:17 AM CDT 03/16/2025 Narrative [facility] INSURANCE BILL - 03/17/2025 7:09 AM CDT Performed at: 01 - [facility] [address] [place] [id number] Distilling Department Supervisor: Billy Hernández PhD, Phone: [phone] us Marry Cardoso MD LAB - HEMATOLOGY ORDERABLES Fin al Result [facility] INSURANCE BILL [address] [place] [address] * COMPREHENSIVE METABOLIC PANEL (03/16/2025 11:17 AM CDT) Glucose 84 70 - 99 mg/dL [facility] INSURANCE BILL BUN 18 8 - 27 mg/dL [facility] INSURANCE BILL Creatinine 0.91 0.57 - 1.00 mg/dL [facility] INSURANCE BILL eGFR by CKD-EPI 62 >59 mL/min/1.7 3 [facility] INSURANCE BILL BUN/Creatinine Ratio 20 12 - 28 [facility] INSURANCE BILL Sodium 143 134 - 144 mmol/L [facility] INSURANCE BILL Potassium 4.8 3.5 - 5.2 mmol/L [facility] INSURANCE BILL Chloride 102 96 - 106 mmol/L [facility] INSURANCE BILL CO2 27 20 - 29 mmol/L [facility] INSURANCE BILL Calcium 9.7 8.7 - 10.3 mg/dL [facility] INSURANCE BILL Protein Total 6.3 6.0 - 8.5 g/dL [facility] INSURANCE BILL Albumin 4.0 3.7 - 4.7 g/dL [facility] INSURANCE BILL Globulin Total 2.3 1.5 - 4.5 g/dL [facility] INSURANCE BILL Bilirubin Total 0.3 0.0 - 1.2 mg/dL [facility] INSURANCE BILL Alkaline Phosphatase 86 44 - 121 IU/L [facility] INSURANCE BILL AST 21 0 - 40 IU/L [facility] INSURANCE BILL ALT 19 0 - 32 IU/L [facility] INSURANCE BILL Blood BLOOD SPECIMEN / Unknown 03/16/2025 11:17 AM CDT 03/16/2025 Narrative [facility] INSURANCE BILL - 03/17/2025 10:10 AM CDT Performed at: 01 - [address] [id number] Distilling Department Supervisor: Billy Hernández PhD, Phone: [phone] us Marry Cardoso MD LAB - CHEMISTRY ORDERABLES Olamide l Result [facility] INSURANCE BILL [address] [place] [address] * DEXA BONE DENSITY 2 SITES (08/17/2023) Anatomical Region Laterality Modality Other 08/17/2023 Narrative 08/17/2023 Ordered by an unspecified provider. us Scanned Document DEXA ORDERABLES Final Result from Last 3 Months or Most Recently Relevant to Health Maintenance Insurance MEDICARE [facility] Care Teams Auto Body Man Relationship Specialty Start Date End Date Nadege Cervantes APRN-BRADLEY [address] [address] PCP - General Nurse Practitioner 05/30/24 [place] [id number] [phone] Church Supervisor Rheumatology 12/05/15
--- OUTSIDE RECORDS SUMMARY | 2025-05-09 10:22 | XMS_ITS | Encounter Summary ---
Author Organization [facility] Address [address] [facility] [place] [address] Care Team Providers Care Hand Molder And Caster Name Role Phone Marry Cardoso MD Unavailable [phone] Nadege Cervantes APRN-HOT MIX OPERATOR Primary Care Provider + Encounter Details Date Type Department Care Team (Late st Contact Info) Description 05/08/2025 Telephone [facility] Medical [facility] - Rheumatology [id number] [place] [address], [address] [place] [address] [place] [address] [facility] [address] [place] [address] Social History Tobacco Use Types Packs/Day Years Used Date Smoking Tobacco: Former Cigarettes 1 08/30/2002 - 12/28/2006 Smokeless Tobacco: Former Alcohol Use Standard Drinks/Week Comments Yes 0 (1 standard drink = 0.6 oz pur e alcohol) Rare PHQ-2 Answer Date Recorded Patient Health Questionnaire-2 Score 0 05/08/2025 Comments No Sex and Gender Information Value Date Recorded Sex Assigned at Female 01/21/2021 10:18 AM CDT 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 Thank you for your help * Telephone Encounter - Felicia Vasquez RN - 05/08/2025 8:54 AM CDT Per MD- Nurse called [facility] for most current DEXA. Per Radiology department - last DEXA 2022 Since DEXA was ordered by other provider - patient will get DEXA results and bring to next infusionvisit. documented in this encounter Plan of Treatment Upcoming Encounters Date Type Department Care Team (Late st Contact Info) Description 06/19/2025 8:00 AM CDT Appointment [facility] - Rheumatology [address] [place] [address], [address] [place] [address] [place] [address] [facility] [address] [place] [address] documented as of this encounter Visit Diagnoses Not on filedocumented in this encounter Care Teams Hand Molder And Caster Relationship Specialty Start Date End Date Nadege Cervantes APRN-BRADLEY [address] [address] PCP - General Nurse Practitioner 05/30/24 [place] [address] [facility] [address] [place] [address] [facility] [employer] [facility] Former Rheumatology 12/05/15 documented as of this encounter
--- OUTSIDE RECORDS SUMMARY | 2025-05-09 10:22 | XMS_ITS | Encounter Summary ---
Author Organization [facility] Health Address [address] [place] [address] Care Team Providers Care Retail Merchandising Manager Name Role Phone Marry Cardoso MD Unavailable [phone] Nadege Cervantes Primary Care Provider + Marry Cardoso MD Unavailable [phone] Jennifer Benitez MD Primary Care Provider [phone] Nadege Cervantes Primary Care Provider + Encounter Details Date Type Department Care Team (Late st Contact Info) Description 07/27/2017 [facility] Outpatient Visit [facility] [address] [place] [address] [place] [address] [address] Social History Tobacco Use Types Packs/Day Years Used Date Smoking Tobacco: Former Cigarettes 1 08/30/2002 - 12/28/2006 Alcohol Use Standard Drinks/Week Comments Yes 0 (1 standard drink = 0.6 oz pur e alcohol) occas glass of wine Comments No Sex and Gender Information Value Date Recorded Sex Assigned at Female 01/21/2021 10:18 AM CDT 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 Gender Identity Female 01/21/2021 10:18 AM CDT Sexual Orientation Straight 01/21/2021 10 :18 AM CDT Occupation Industry Job Start Date Job End Date retired Not on file Not on file Not on file documented as of this encounter Plan of Treatment Upcoming Encounters Date Type Department Care Team (Late st Contact Info) Description 06/19/2025 8:00 AM CDT Appointment [facility] - Rheumatology [address] [facility], [address] [place] [address] [place] [address] [facility] [address] [place] [address] documented as of this encounter Visit Diagnoses Not on filedocumented in this encounter Care Teams Retail Merchandising Manager Relationship Specialty Start Date End Date Nadege Cervantes APRN-SUPERVISOR [employer] [address] [address] PCP - General Nurse Practitioner 12/05/15 11/23/22 [place]oso [place] [id number] [place] [address] [address] [place] [address] PCP - Attributed-MSSP 03/15/18 12/03/19 Jennifer Benitez MD [address] [place] [address] [address] [place] [address] PCP - General Family Medicine 11/24/22 05/29/24 Nadege Cervantes APRN-SUPERVISOR [employer] [address] [phone] PCP - General Nurse Practitioner 05/30/24 Marry Cardoso [place] [id number] [place] [address] [address] [place] [address] Load Mixer Rheumatology 12/05/15 documented as of this encounter
== END 2025-05-09 09:35 | disposition home or self-care (01) ==
LOC: ANHLAB 09:38
PROVIDERS: PCP Nurse Practitioner Adult Health; Visit Provider Nurse Practitioner Adult Health
DX: R39.9 Unspecified symptoms and signs involving the genitourinary system (principal)
CPT/HCPCS: 81001; 87086

== ENCOUNTER 2025-06-18 11:25 | Outpatient (CLI) | payer MEDICARE, SELFPAY ==
--- NOTE | ~2025-06-18 | US_ITS ---
EXAMINATION:US venous doppler LE LT INDICATION:Left lower leg pain TECHNIQUE: Multiple grayscale, color flow and Doppler images of the left lower extremity deep venous systems were obtained and reviewed. COMPARISON:No prior studies for comparison. FINDINGS: The common femoral, superficial femoral and popliteal veins demonstrate normal respiratory variation, augmentation and compressibility. Color flow is also seen within the posterior tibial, peroneal, greater saphenous and profunda veins. IMPRESSION: 1: No lower extremity deep venous thrombosis. Reviewed, dictated and finalized at location O.
== END 2025-06-18 11:26 | disposition home or self-care (01) ==
PROVIDERS: PCP Nurse Practitioner Adult Health; Visit Provider Nurse Practitioner Adult Health
DX: M79.662 Pain in left lower leg (principal)
CPT/HCPCS: 93971